=== PATIENT | male | born 1970 | race African-American/Black ===

== ENCOUNTER 2018-07-01 07:29 | Observation (INO) ==
--- NOTE | 2018-07-01 07:45 | ED ---
HPI General Chief Complaint: Chest Pain Stated Complaint: chest pain Time Seen by Provider: 07/01/18 07:33 History of Present Illness HPI narrative: Patient is 47-year-old male with history of high blood pressure, stopped taking lisinopril after he lost weight. He presented to emergency room complaining about midsternal chest pain started at 11 PM last night mostly constant. He denies abdominal pain, dyspnea. Patient has chronic low back pain , takes ibuprofen for that. 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 Last night he took 1 tablet of lisinopril and baby aspirin with no improvement. MD complaint: Reports chest pain Related Data Home Medications Medication Instructions Recorded Confirmed aspirin [Aspir-81] 81 mg PO ONCE 07/01/18 07/01/18 dexlansoprazole [Dexilant] 30 mg PO ONCE 07/01/18 07/01/18 lisinopril 2.5 mg PO ONCE 07/01/18 07/01/18 Allergies Allergy/AdvReac Type Severity Reaction Status Date / Time No Known Allergies Allergy Verified 07/01/18 07:38 Review of Systems ROS: all other systems reviewed are negative Cardiovascular Reports chest pain [facility] Medical History Medical History History of cardiac murmur as a child (Acute) Surgical History Surgical History Hx of hernia repair (Acute) Family History Family History Father Family history of heart disease Mother History of liver cancer Social History Social History Substance History: No History of Abuse Second Hand Smoke Exposure: No Smoking Status: Never smoker How Often Do You Have a Drink Containing Alcohol: Never Recent Out of Country Travel within the Last 8 Weeks: No Exam Narrative Exam Narrative: GENERAL: 47-year-old male in no apparent distress. SKIN: Focused skin assessment warm/dry. HEAD: Atraumatic. Normocephalic. EYES: Pupils equal and round. No scleral icterus. No injection or drainage. ENT: No nasal bleeding or discharge. Mucous membranes pink and moist. NECK: Trachea midline. No JVD. CARDIOVASCULAR: Regular rate and rhythm. No murmur appreciated. RESPIRATORY: No accessory muscle use. Clear to auscultation. Breath sounds equal bilaterally. GASTROINTESTINAL: Abdomen soft, non-tender, nondistended. Hepatic and splenic margins not palpable. MUSCULOSKELETAL: No obvious deformities. No clubbing. No cyanosis. No edema. NEUROLOGICAL: Awake and alert. No obvious cranial nerve deficits. Motor grossly within normal limits. Normal speech. PSYCHIATRIC: Appropriate mood and affect; insight and judgment normal. Course Initial Documented Vital Signs Pulse Rate 67 07/01/18 07:36 Respiratory Rate 18 07/01/18 07:36 Blood Pressure 140/95 H 07/01/18 07:36 Pulse Oximetry 98 07/01/18 07:36 Last Documented Vital Signs Temperature 96.8 F L 07/01/18 12:00 Pulse Rate 59 L 07/01/18 12:00 Respiratory Rate 20 07/01/18 12:00 Blood Pressure 128/76 07/01/18 12:00 Pulse Oximetry 97 07/01/18 12:00 Medical Decision Making MDM Narrative Medical decision making narrative: Cardiac workup ordered, aspirin and nitroglycerin given. Reevaluation is pending. 0800: No chest pain improvement with aspirin and nitroglycerin; morphine and Maalox given. Patient is unable to describe his pain, also feels palpitations, denies anxiety reaction. 0840: Pain resolved, patient feels better. First set of troponin is negative, CK MB is positive. Patient needs to be placed on observation for chest pain rule out ACS. Medical Screen Exam Complete: Yes Emergency Medical Condition: Yes Differential Diagnosis Differential Diagnosis: [place] versus costochondritis versus gastritis versus pneumonia. Lab Data Result diagrams: 07/01/18 07:45 07/01/18 07:45 Lab Results 07/01/18 07/01/18 07/01/18 Range/Units 07:45 07:45 07:45 CBC w Diff Slide review pending WBC 5.0 (4.0-11.0) th/mm3 RBC 3.75 L (4.50-5.90) mil/mm3 Hgb 11.7 L (13.0-17.0) gm/dL Hct 35.4 L (39.0-51.0) % MCV 94.5 (80.0-100.0) fL MCH 31.1 (27.0-34.0) pg MCHC 33.0 (32.0-36.0) % RDW 13.0 (11.6-17.2) % Plt Count 231 (150-450) th/mm3 MPV 8.0 (7.0-11.0) fL Neut % (Auto) 35.8 (16.0-70.0) % Lymph % (Auto) 49.5 H (9.0-44.0) % [place] % (Auto) 12.0 H (0.0-8.0) % Eos % (Auto) 1.7 (0.0-4.0) % Baso % (Auto) 1.0 (0.0-2.0) % Neut # (Auto) 1.8 (1.8-7.7) th/mm3 Lymph # (Auto) 2.4 (1.0-4.8) th/mm3 [place] # (Auto) 0.6 (0.0-0.9) th/mm3 Eos # (Auto) 0.1 (0.0-0.4) th/mm3 Baso # (Auto) 0.1 (0.0-0.2) th/mm3 WBC Differential . Diff Scan Auto diff confirmed Differential Comment . Platelet Estimate Normal (Normal) Platelet Morphology Normal (Normal) RBC Morphology Normal (Normal) D-Dimer Quant (PE/DVT) 0.28 (0.00-0.50) mg/L FEU Sodium 140 (136-145) meq/L Potassium 3.7 (3.5-5.1) meq/L Chloride 106 (98-107) meq/L Carbon Dioxide 26.8 (21.0-32.0) meq/L Anion Gap 7 (5-15) meq/L BUN 13 (7-18) mg/dL Creatinine 1.20 (0.60-1.30) mg/dL Estimated GFR 79 L (>89) mL/min Random Glucose 89 (74-106) mg/dL Calcium 8.5 (8.5-10.1) mg/dL Total Bilirubin 0.4 (0.2-1.0) mg/dL AST 23 (15-37) U/L ALT 23 (12-78) U/L Alkaline Phosphatase 74 (45-117) U/L Total Creatine Kinase 649 H (39-308) U/L CK-MB (CK-2) 1.4 (0.5-3.6) ng/mL CK-MB (CK-2) % 0.2 (0.0-4.0) % Troponin I Less than 0.02 L (0.02-0.05) ng/mL Total Protein 7.4 (6.4-8.2) g/dL Albumin 4.0 (3.4-5.0) g/dL Lipase 108 (73-393) U/L 07/01/18 07/01/18 Range/Units 07:45 10:49 CBC w Diff WBC (4.0-11.0) th/mm3 RBC (4.50-5.90) mil/mm3 Hgb (13.0-17.0) gm/dL Hct (39.0-51.0) % MCV (80.0-100.0) fL MCH (27.0-34.0) pg MCHC (32.0-36.0) % RDW (11.6-17.2) % Plt Count (150-450) th/mm3 MPV (7.0-11.0) fL Neut % (Auto) (16.0-70.0) % Lymph % (Auto) (9.0-44.0) % [place] % (Auto) (0.0-8.0) % Eos % (Auto) (0.0-4.0) % Baso % (Auto) (0.0-2.0) % Neut # (Auto) (1.8-7.7) th/mm3 Lymph # (Auto) (1.0-4.8) th/mm3 [place] # (Auto) (0.0-0.9) th/mm3 Eos # (Auto) (0.0-0.4) th/mm3 Baso # (Auto) (0.0-0.2) th/mm3 WBC Differential Diff Scan Differential Comment Platelet Estimate (Normal) Platelet Morphology (Normal) RBC Morphology (Normal) D-Dimer Quant (PE/DVT) (0.00-0.50) mg/L FEU Sodium (136-145) meq/L Potassium (3.5-5.1) meq/L Chloride (98-107) meq/L Carbon Dioxide (21.0-32.0) meq/L Anion Gap (5-15) meq/L BUN (7-18) mg/dL Creatinine (0.60-1.30) mg/dL Estimated GFR (>89) mL/min Random Glucose (74-106) mg/dL Calcium (8.5-10.1) mg/dL Total Bilirubin (0.2-1.0) mg/dL AST (15-37) U/L ALT (12-78) U/L Alkaline Phosphatase (45-117) U/L Total Creatine Kinase Cancelled 645 H (39-308) U/L CK-MB (CK-2) 1.4 (0.5-3.6) ng/mL CK-MB (CK-2) % 0.2 (0.0-4.0) % Troponin I Less than 0.02 L (0.02-0.05) ng/mL Total Protein (6.4-8.2) g/dL Albumin (3.4-5.0) g/dL Lipase (73-393) U/L Imaging Data Radiologist's impression: Chest X-Ray 07/01/18 07:39 CONCLUSION: Negative for acute process ECG Data EKG Prior to Arrival: No Attestation: I personally reviewed and interpreted this ECG as follows: Prior ECG tracings: available for review Interpretation: Normal sinus rhythm at rate 67, no ST elevation, LVH. Discharge Plan Discharge Disposition Patient Disposition: 30 Still Patient Discharge Condition Condition: Stable Discharge Order Discharge Orders: Discharge Order (Routine); Ordered 07/01/18 Ordered By: Tavo Napoles Discharge Details Anticipated Discharge Date: 07/01/18 Diagnosis: Atypical chest pain Physicians Team ED Provider: Rizwan Bhatt Primary Care Provider: Primary Care Lanette Lockhart Attending Provider: Hermelinda Clark Status ED Status: Left Department Discharge Information Discharge Date/Time: 07/01/18 09:39
[2018-07-01 07:58] LABS: Baso # (Auto) 0.1 th/mm3 (0.0-0.2); Eos # (Auto) 0.1 th/mm3 (0.0-0.4); Eos % (Auto) 1.7 % (0.0-4.0); Hematocrit 35.4 % (39.0-51.0); Hemoglobin 11.7 gm/dL (13.0-17.0); Lymph # (Auto) 2.4 th/mm3 (1.0-4.8); Lymph % (Auto) 49.5 % (9.0-44.0); Mean Corpuscular Hemoglobin 31.1 pg (27.0-34.0); Mean Corpuscular Volume 94.5 fL (80.0-100.0); Mono # (Auto) 0.6 th/mm3 (0.0-0.9); Neut # (Auto) 1.8 th/mm3 (1.8-7.7); Neut % (Auto) 35.8 % (16.0-70.0); Platelet Count 231 th/mm3 (150-450); Red Blood Count 3.75 mil/mm3 (4.50-5.90)
[2018-07-01] MEDS ORDERED: Morphine Sulfate Inj 2 MG/ML Vial IV.PUSH ONE (07:59)
[2018-07-01] MEDS ORDERED: Aluminum/Magnesium/Simethacone Susp 30 ML UDC PO ONE (08:01)
--- NOTE | 2018-07-01 08:04 | XR ---
EXAM DATE: 07/01/2018 7:58 AM EDT AGE/SEX: 47 years / Male INDICATIONS: Chest pains since last night. CLINICAL DATA: This is the patient's initial encounter. Patient reports that signs and symptoms have been present for 1 day and indicates a pain score of 5/10. MEDICAL/SURGICAL HISTORY: Hypertension. None. COMPARISON: No prior exams available for comparison. FINDINGS: A single AP view of the chest demonstrates the lungs to be symmetrically aerated without evidence of mass, infiltrate or effusion. The cardiomediastinal contours are unremarkable. Osseous structures a re intact. CONCLUSION: Negative for acute process Electronically signed by: Alden Street MD 07/01/2018 8:03 AM EDT
[2018-07-01 08:12] LABS: Chloride 106 meq/L (98-107); Potassium 3.7 meq/L (3.5-5.1); Sodium 140 meq/L (136-145)
[2018-07-01 08:15] LABS: Calcium 8.5 mg/dL (8.5-10.1)
[2018-07-01 08:16] LABS: Anion Gap 7 meq/L (5-15); Blood Urea Nitrogen 13 mg/dL (7-18); Carbon Dioxide 26.8 meq/L (21.0-32.0); Glucose,Random 89 mg/dL (74-106); Lipase 108 U/L (73-393)
[2018-07-01 08:19] LABS: Alanine Aminotransferase 23 U/L (12-78); Aspartate Aminotransferase 23 U/L (15-37); Glomerular Filtration Rate 79 mL/min (>89)
[2018-07-01 08:20] LABS: Total Protein 7.4 g/dL (6.4-8.2)
[2018-07-01 08:22] LABS: Alkaline Phosphatase 74 U/L (45-117); Creatine Kinase 649 U/L (39-308)
[2018-07-01 08:23] LABS: RBC Morphology Normal (Normal)
[2018-07-01 08:25] LABS: Platelet Estimate Normal (Normal); Platelet Morphology Normal (Normal)
[2018-07-01 08:34] LABS: CKMB Percent 0.2 % (0.0-4.0); Creatine Kinase MB 1.4 ng/mL (0.5-3.6)
[2018-07-01] MEDS ORDERED: Acetaminophen 500 MG Tablet PO PRN (09:45)
[2018-07-01] MEDS ORDERED: Morphine Inj 4 MG/ML Vial IV.PUSH PRN (09:45)
[2018-07-01 10:28] VITALS: RESP 20
--- NOTE | 2018-07-01 10:36 | P.HP ---
History of Present Illness Primary Care Physician: No Primary Care Physician Chief Complaint: Chest pain History of Present Illness: 47-year-old male with past medical history of hypertension who presented hospital for chest discomfort. Patient states that last night at approximately 11 PM he developed a sudden onset of chest discomfort in the middle part of her chest without any radiation to neck, back, shoulder, arm. Denied any nausea, vomiting, diaphoresis, shortness of breath, dyspnea, lightheadedness, dizziness. Patient does have history of hypertension which he was taking off blood pressure medication approximate 1 year ago because he lost weight. Patient denies any previous cardiac workup or stress testing. Patient states that the pain was located in the center part of his chest which was 7/10 on a pain scale remained constant until he came to the emergency department. Patient did present to the emergency department and was given morphine and nitroglycerin with complete resolution of his discomfort. It was recommended by the ER physician the patient be observed in the chest pain center for further evaluation management. Patient does have increased risk factors to include history of hypertension, family history of heart disease. - Diagnosis (1) Atypical chest pain Review of Systems All other systems reviewed negative except as stated in HPI Cardiovascular: Reports chest pain PMFSH - History History Provided By: Patient - Medical History Medical History: Medical History (Last Updated 07/01/18 @ 07:37 by Mary Dixon RN) History of cardiac murmur as a child - Surgical History Surgical History: Surgical History (Last Updated 07/01/18 @ 07:37 by Mary Dixon RN) Hx of hernia repair - Family History Family History: Family History (Last Updated 07/01/18 @ 10:28 by JAILYN Metz) Father Family history of heart disease Mother History of liver cancer - Tobacco History Second Hand Smoke Exposure: No Smoking Status: Never smoker - Alcohol History How Often Do You Have a Drink Containing Alcohol: Never - Substance Use History Substance History: No History of Abuse - Travel History Recent Travel Out of the Country Within the Last 8 Weeks: No - Immunization History Tetanus Immunization: Unsure Medications and Allergies Active Medications: Active Medications Acetaminophen (Tylenol) 500 mg PO Q4H PRN PRN Reason: HEADACHE Hydrocodone Bitart/Acetaminophen ([place] 7.5/325) 1 tab PO Q4H PRN PRN Reason: PAIN SCALE 1 TO 7 Aspirin (Aspirin) 325 mg PO DAILY CHARIS Morphine Sulfate (Morphine Inj) 2 mg IV.PUSH Q4H PRN PRN Reason: PAIN SCALE 8 TO 10 Nitroglycerin (Nitrostat Sl) 0.4 mg SL Q5M PRN PRN Reason: CHEST PAIN Ondansetron HCl (Zofran Inj) 4 mg IV.PUSH Q6H PRN PRN Reason: NAUSEA Sodium Chloride (Ns Flush) 2 ml IV.FLUSH BID CHARIS Sodium Chloride (Ns Flush) 2 ml IV.FLUSH PRN PRN PRN Reason: FLUSH AFTER USING IV ACCESS Allergies Allergy/AdvReac Type Severity Reaction Status Date / Time No Known Allergies Allergy Verified 07/01/18 07:38 Home Medications Medication Instructions Recorded Confirmed Type aspirin [Aspir-81] 81 mg PO ONCE 07/01/18 07/01/18 History dexlansoprazole [Dexilant] 30 mg PO ONCE 07/01/18 07/01/18 History lisinopril 2.5 mg PO ONCE 07/01/18 07/01/18 History Exam Vital signs: Vital Signs 07/01/18 07:36 07/01/18 07:41 07/01/18 07:44 Temperature 98.1 F Pulse Rate 67 78 64 Respiratory Rate 18 18 Blood Pressure 140/95 H 154/101 H Pulse Oximetry 98 98 98 07/01/18 08:09 07/01/18 08:42 07/01/18 10:25 Temperature 96.4 F L Pulse Rate 76 69 Respiratory Rate 18 20 Blood Pressure 134/89 139/90 133/82 Pulse Oximetry 98 98 Intake & Output 06/30/18 07/01/18 07/01/18 18:59 06:59 18:59 Weight 90 kg Narrative: GENERAL: Well-developed, well-nourished, in no acute distress. alert and orientated HEENT: Head is normocephalic without any lesions or masses noted. Facial features are symmetric. Eyes: Pupils equal round reactive to light. Extraocular muscles are intact. Conjunctivae were clear. Oropharyngeal: Pharynx without any erythema edema. Tongue is midline without deviation. Buccal mucosa is moist without any masses or lesions NECK: Supple without any masses. Trachea midline no deviation. No JVD, no bruits are appreciated CARDIAC: Regular rhythm, regular rate. S1/S2 are heard. No murmurs gallops or rubs. LUNGS: Clear to auscultation bilaterally. No wheeze, rhonchi or rales. No use of accessory muscles on inspiration or expiration. ABDOMEN: Soft, nontender. Nondistended. Bowel sounds heard in all 4 quadrants. No organomegaly or masses. Negative rebound, negative guarding EXTREMITIES: No edema, pulses are equal bilaterally. No cyanosis or clubbing NEUROLOGY: Mood and affect appear appropriate. Cranial nerves II through XII grossly intact. Muscle strength 5/5 in upper and lower extremities bilaterally. Deep tendon reflexes are 2+ in upper and lower extremities bilaterally. Results - Labs CBC & Chem 7: 07/01/18 07:45 07/01/18 07:45 Labs: Laboratory Results - last 24 hr 07/01/18 07/01/18 07/01/18 07:45 07:45 07:45 CBC w Diff Slide review pending WBC 5.0 RBC 3.75 L Hgb 11.7 L Hct 35.4 L MCV 94.5 MCH 31.1 MCHC 33.0 RDW 13.0 Plt Count 231 MPV 8.0 Neut % (Auto) 35.8 Lymph % (Auto) 49.5 H [place] % (Auto) 12.0 H Eos % (Auto) 1.7 Baso % (Auto) 1.0 Neut # (Auto) 1.8 Lymph # (Auto) 2.4 [place] # (Auto) 0.6 Eos # (Auto) 0.1 Baso # (Auto) 0.1 WBC Differential . Diff Scan Auto diff confirmed Differential Comment . Platelet Estimate Normal Platelet Morphology Normal RBC Morphology Normal D-Dimer Quant (PE/DVT) 0.28 Sodium 140 Potassium 3.7 Chloride 106 Carbon Dioxide 26.8 Anion Gap 7 BUN 13 Creatinine 1.20 Estimated GFR 79 L Random Glucose 89 Calcium 8.5 Total Bilirubin 0.4 AST 23 ALT 23 Alkaline Phosphatase 74 Total Creatine Kinase 649 H CK-MB (CK-2) 1.4 CK-MB (CK-2) % 0.2 Troponin I Less than 0.02 L Total Protein 7.4 Albumin 4.0 Lipase 108 07/01/18 07:45 CBC w Diff WBC RBC Hgb Hct MCV MCH MCHC RDW Plt Count MPV Neut % (Auto) Lymph % (Auto) [place] % (Auto) Eos % (Auto) Baso % (Auto) Neut # (Auto) Lymph # (Auto) [place] # (Auto) Eos # (Auto) Baso # (Auto) WBC Differential Diff Scan Differential Comment Platelet Estimate Platelet Morphology RBC Morphology D-Dimer Quant (PE/DVT) Sodium Potassium Chloride Carbon Dioxide Anion Gap BUN Creatinine Estimated GFR Random Glucose Calcium Total Bilirubin AST ALT Alkaline Phosphatase Total Creatine Kinase Cancelled CK-MB (CK-2) CK-MB (CK-2) % Troponin I Total Protein Albumin Lipase - Imaging Impressions Chest X-Ray 07/01/18 07:39 CONCLUSION: Negative for acute process Caprini VTE Risk Assessment Caprini VTE Risk Assessment: No/Low Risk (score <= 1) Caprini Risk Assessment Model: Point Value = 1 Point Value = 2 Point Value = 3 Point Value = 5 Age 41-60 Minor surgery BMI > 25 kg/m2 Swollen legs Varicose veins or History of unexplained or recurrent spontaneous Oral contraceptives or hormone replacement Sepsis (< 1 month) Serious lung disease, including pneumonia (< 1 month) Abnormal pulmonary function Acute myocardial infarction Congestive heart failure (< 1 month) History of inflammatory bowel disease Medical patient at bed rest Age 61-74 Arthroscopic surgery Major open surgery (> 45 min) Laparoscopic surgery (> 45 min) Malignancy Confined to bed (> 72 hours) Immobilizing plaster cast Central venous access Age >= 75 History of VTE Family history of VTE Factor V Leiden Prothrombin [id number] Lupus anticoagulant Anticardiolipin antibodies Elevated serum homocysteine Heparin-induced thrombocytopenia Other congenital or acquired thrombophilia Stroke (< 1 month) Elective arthroplasty Hip, pelvis, or leg fracture Acute spinal cord injury (< 1 month) Prophylaxis Regimen: Total Risk Factor Score Risk Level Prophylaxis Regimen 0-1 Low Early ambulation 2 Moderate Order ONE of the following: *Sequential Compression Device (SCD) *Heparin 5000 units SQ BID 3-4 Higher Order ONE of the following medications: *Heparin 5000 units SQ TID *Enoxaparin/Lovenox 40 mg SQ daily (WT < 150 kg, CrCl > 30 mL/min) *Enoxaparin/Lovenox 30 mg SQ daily (WT < 150 kg, CrCl > 10-29 mL/min) *Enoxaparin/Lovenox 30 mg SQ BID (WT < 150 kg, CrCl > 30 mL/min) AND/OR *Sequential Compression Device (SCD) 5 or more Highest Order ONE of the following medications: *Heparin 5000 units SQ TID (Preferred with Epidurals) *Enoxaparin/Lovenox 40 mg SQ daily (WT < 150 kg, CrCl > 30 mL/min) *Enoxaparin/Lovenox 30 mg SQ daily (WT < 150 kg, CrCl > 10-29 mL/min) *Enoxaparin/Lovenox 30 mg SQ BID (WT < 150 kg, CrCl > 30 mL/min) AND *Sequential Compression Device (SCD) Assessment and Plan - Assessment (1) Atypical chest pain Code(s): R07.89 - Other chest pain Status: Acute - Plan Atypical chest pain -Patient with risk factors include history of hypertension, family history of heart disease -Patient has been ruled out for acute coronary event with serial cardiac enzymes that are negative -Serial EKG reviewed by myself that shows normal sinus rhythm without any changes -Exercise stress test was performed and indicated normal test, no signs of ischemia. -Continue aspirin, nitroglycerin as needed, morphine for pain control -Continue monitor telemetry DVT prevention -Sequential compression devices Discharge Planning: Discharge home in stable condition Activity: Ad wiliam. Diet: Healthy heart diet Medication per medication reconciliation Follow-up with primary medical doctor in 1 week
[2018-07-01 11:31] LABS: Creatine Kinase 645 U/L (39-308)
[2018-07-01 11:44] LABS: CKMB Percent 0.2 % (0.0-4.0); Creatine Kinase MB 1.4 ng/mL (0.5-3.6)
[2018-07-01 13:12] VITALS: BP 128/76; PULSE 59; TEMP 96.8; O2SAT 97
--- NOTE | 2018-07-01 14:39 | ECG ---
Date Performed: 07/01/2018 Time Performed: 07:33:59 PTAGE: 47 years EKG: Sinus rhythm NORMAL ECG NO PREVIOUS TRACING DOCTOR: Toan Mario Interpretating Date/Time 07/01/2018 14:37:39
[2018-07-02] MEDS ORDERED: Aspirin 325 MG Tablet PO SCH (09:00)
--- NOTE | 2018-07-02 14:51 | ECG ---
Date Performed: 07/01/2018 Time Performed: 10:45:18 PTAGE: 47 years EKG: Sinus rhythm WITH SINUS ARRHYTHMIA Since the previous tracing, no significant change noted NORMAL ECG PREVIOUS TRACING : 07/01/2018 07.33 DOCTOR: Cornell Siu Interpretating Date/Time 07/02/2018 14:48:39
--- NOTE | 2018-07-02 17:21 | TR ---
Date Performed: 07/01/2018 Time Performed: 12:45:22 DOCTOR: Connie Sabillon DRUG LIST: CLINICAL HISTORY: REASON FOR TEST: REASON FOR ENDING: Completed Protocol OBSERVATION: Arrhythmia: None Chest Pain: None CONCLUSION: Patient tolerated DAVID protocol with Total Exercise Time=8:01 Maximum TS=008 % Max HR Achieved=87.0% Maximum JG=644/85, Testing stopped secondary to goals acheived, During peak exercis e, patient was asymptomatic, quick upsloping ST segments, HR and BP appropriate response to exercise. Recovery period, HR and BP returned to baseline. no ischemia COMMENTS: no ischemia
== END 2018-07-01 13:55 | disposition home or self-care (01) ==
LOC: PHEDA 07:29 → PHED 07:29 → PH3 09:34
PROVIDERS: ADMIT Family Medicine; ATTEND Family Medicine

== ENCOUNTER 2018-07-29 15:27 | Inpatient (IN) ==
[2018-07-29] MEDS ORDERED: Orphenadrine Inj 60 MG/2 ML Ampul IM ONE (16:14)
--- NOTE | 2018-07-29 16:37 | XR ---
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 CLINICAL DATA: This is the patient's initial encounter. Patient reports that signs and symptoms have been present for 2 days and indicates a pain score of 7/10. MEDICAL/SURGICAL HISTORY: None. None. COMPARISON: [facility], CHEST 1V SINGLE AP, 07/01/2018. . FINDINGS: Examination reveals permeative destruction or resorption of the majority of the anterior aspect of th e L4 vertebral body. There is abnormal lucency involving the visualized posterior portion of the vert ebral body. The other vertebra are benign in appearance with superior endplate compressive deformitie s at L1 and L2 which appear old. There is no significant spondylolisthesis. CONCLUSION: Destructive process involving L4 vertebral body. Further evaluation with pre and postcontrast MRI of the lumbar spine suggested. Electronically signed by: Mike Samuel MD 07/29/2018 4:36 PM EST
--- NOTE | 2018-07-29 17:29 | ED ---
HPI General Chief Complaint: Back Pain/Injury Stated Complaint: back pain Time Seen by Provider: 07/29/18 16:03 Source: patient Mode of arrival: ambulatory Limitations: no limitations History of Present Illness HPI Narrative: 47-year-old male here with low back pain & "spine swelling" present for 1 month. 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 He reports swelling and a "bulge" to the low back which has been present for 1 month. Yesterday he attempted to mow the grass which exacerbated the pain in the back. He denies altered sensation or weakness of extremities. No incontinence. No saddle anesthesia. Denies history of IVDA. No fever or chills. No weight loss. No abdominal pain. Related Data Home Medications Medication Instructions Recorded Confirmed lisinopril 2.5 mg PO DAILY PRN 07/01/18 07/29/18 Allergies Allergy/AdvReac Type Severity Reaction Status Date / Time No Known Allergies Allergy Verified 07/29/18 16:00 Review of Systems ROS: all other systems reviewed are negative [facility] Medical History Medical History Murmur, heart (Acute) History of cardiac murmur as a child (Acute) Surgical History Surgical History Hx of hernia repair (Acute) Family History Family History Father Family history of heart disease Mother History of liver cancer Social History Social History Substance History: No History of Abuse Second Hand Smoke Exposure: No Smoking Status: Former smoker Tobacco Type: Cigarettes How Often Do You Have a Drink Containing Alcohol: Never Immunization History Tetanus Immunization: <5 Years Exam Narrative Exam Narrative: GENERAL: Alert and well-appearing 47-year-old male. SKIN: Focused skin assessment warm/dry. HEAD: Atraumatic. Normocephalic. EYES: Pupils equal and round. No scleral icterus. No injection or drainage. NECK: Trachea midline. No JVD. CARDIOVASCULAR: Regular rate and rhythm. No murmur appreciated. RESPIRATORY: No accessory muscle use. Clear to auscultation. Breath sounds equal bilaterally. GASTROINTESTINAL: Abdomen soft, non-tender, nondistended. Hepatic and splenic margins not palpable. MUSCULOSKELETAL: No obvious deformities. No clubbing. No cyanosis. No edema. BACK: Tenderness to the lumbar spine region with notable swelling to the midline spine. There is no warmth or erythema. NEUROLOGICAL: Awake and alert. No obvious cranial nerve deficits. Motor grossly within normal limits. 5/5 strength in his lower extremities. Is able to flex and extend the great toe. Distal sensation intact. Ambulates with a steady gait. Course Initial Documented Vital Signs Temperature 98.9 F 07/29/18 15:28 Pulse Rate 85 07/29/18 15:28 Respiratory Rate 20 07/29/18 15:28 Blood Pressure 162/94 H 07/29/18 15:28 Pulse Oximetry 98 07/29/18 15:28 Last Documented Vital Signs Temperature 98.9 F 07/29/18 15:28 Pulse Rate 68 07/29/18 22:15 Respiratory Rate 18 07/29/18 22:15 Blood Pressure 155/90 H 07/29/18 22:15 Pulse Oximetry 96 07/29/18 19:55 Medical Decision Making MDM Narrative Medical decision making narrative: 47-year-old male here with progressive low back pain and mild swelling to the lumbar spine region x 1 month. He has a normal neurologic exam. xray revealed a destructive process involving the L4 vertebral body with recommended MRI w/ contrast. MRI of lumbar spine: reveal destructive process involving L4 vertebral body with marrow replacing process concerning for myeloma 2054: Spoke with house calls nurse practitioner Neurosurgeon Dr Keene who would like the patient admitted to medicine [facility], transfer to the main hospital, routine consult for himself & oncology. Spoke with Dr Edouard [facility] who agrees to admit patient to their service. Medical Screen Exam Complete: Yes Emergency Medical Condition: Yes Differential Diagnosis Differential Diagnosis: Compression fracture, lumbar strain, osteomyelitis Lab Data Result diagrams: 07/29/18 17:40 07/29/18 17:40 Lab Results 07/29/18 07/29/18 Range/Units 17:40 17:40 CBC w Diff Auto diff final WBC 5.0 (4.0-11.0) th/mm3 RBC 3.65 L (4.50-5.90) mil/mm3 Hgb 11.2 L (13.0-17.0) gm/dL Hct 33.7 L (39.0-51.0) % MCV 92.3 (80.0-100.0) fL MCH 30.7 (27.0-34.0) pg MCHC 33.2 (32.0-36.0) % RDW 12.9 (11.6-17.2) % Plt Count 223 (150-450) th/mm3 MPV 7.7 (7.0-11.0) fL Neut % (Auto) 47.5 (16.0-70.0) % Lymph % (Auto) 38.9 (9.0-44.0) % [place] % (Auto) 11.3 H (0.0-8.0) % Eos % (Auto) 1.2 (0.0-4.0) % Baso % (Auto) 1.1 (0.0-2.0) % Neut # (Auto) 2.3 (1.8-7.7) th/mm3 Lymph # (Auto) 1.9 (1.0-4.8) th/mm3 [place] # (Auto) 0.6 (0.0-0.9) th/mm3 Eos # (Auto) 0.1 (0.0-0.4) th/mm3 Baso # (Auto) 0.1 (0.0-0.2) th/mm3 WBC Differential . Differential Comment . Sodium 141 (136-145) meq/L Potassium 3.9 (3.5-5.1) meq/L Chloride 107 (98-107) meq/L Carbon Dioxide 27.8 (21.0-32.0) meq/L Anion Gap 6 (5-15) meq/L BUN 9 (7-18) mg/dL Creatinine 1.30 (0.60-1.30) mg/dL Estimated GFR 72 L (>89) mL/min Random Glucose 89 (74-106) mg/dL Calcium 8.7 (8.5-10.1) mg/dL Total Bilirubin 0.6 (0.2-1.0) mg/dL AST 25 (15-37) U/L ALT 31 (12-78) U/L Alkaline Phosphatase 80 (45-117) U/L Total Protein 7.2 (6.4-8.2) g/dL Albumin 3.9 (3.4-5.0) g/dL Imaging Data Radiologist's impression: Lumbar Spine X-Ray 07/29/18 16:14 CONCLUSION: Destructive process involving L4 vertebral body. Further evaluation with pre and postcontrast MRI of the lumbar spine suggested. Lumbar Spine MRI 07/29/18 17:19 CONCLUSION: 1. Abnormal L4 vertebral body with subtle marrow edema and L2 and L4 without obvious enhancement. This has the appearance of a long-standing process. 2. Marrow appears osteoporotic with minimal endplate depression of L1 and L2.. 3. Marrow replacing process such as a myeloma should be excluded clinically. 4. Bone scan may help in determining whether or not this is an acute or chronic process. 5. If a small inflammatory process such as tuberculosis is a consideration this could be biopsied precariously as well. Discharge Plan Discharge Disposition Patient Disposition: 30 Still Patient Discharge Details Diagnosis: Fracture of lumbar spine Physicians Team ED Provider: Dov Paul ED Midlevel Provider: Bnig Mcclellan Primary Care Provider: Primary Care Lanette Lockhart Attending Provider: Hazel Edouard Other Providers: Baldemar Keene ; Endy Aldridge Status ED Status: Admitted Patient
[2018-07-29 17:44] LABS: Baso # (Auto) 0.1 th/mm3 (0.0-0.2); Baso % (Auto) 1.1 % (0.0-2.0); Eos # (Auto) 0.1 th/mm3 (0.0-0.4); Eos % (Auto) 1.2 % (0.0-4.0); Hematocrit 33.7 % (39.0-51.0); Hemoglobin 11.2 gm/dL (13.0-17.0); Lymph # (Auto) 1.9 th/mm3 (1.0-4.8); Lymph % (Auto) 38.9 % (9.0-44.0); Mean Corpuscular HGB Conc 33.2 % (32.0-36.0); Mean Corpuscular Hemoglobin 30.7 pg (27.0-34.0); Mean Corpuscular Volume 92.3 fL (80.0-100.0); Mean Platelet Volume 7.7 fL (7.0-11.0); Mono # (Auto) 0.6 th/mm3 (0.0-0.9); Mono % (Auto) 11.3 % (0.0-8.0); Neut # (Auto) 2.3 th/mm3 (1.8-7.7); Neut % (Auto) 47.5 % (16.0-70.0); Platelet Count 223 th/mm3 (150-450); Red Blood Count 3.65 mil/mm3 (4.50-5.90); Red Cell Distribution Width 12.9 % (11.6-17.2)
[2018-07-29 17:50] LABS: Chloride 107 meq/L (98-107); Potassium 3.9 meq/L (3.5-5.1); Sodium 141 meq/L (136-145)
[2018-07-29 17:55] LABS: Calcium 8.7 mg/dL (8.5-10.1)
[2018-07-29 17:56] LABS: Albumin 3.9 g/dL (3.4-5.0); Anion Gap 6 meq/L (5-15); Blood Urea Nitrogen 9 mg/dL (7-18); Carbon Dioxide 27.8 meq/L (21.0-32.0); Glucose,Random 89 mg/dL (74-106)
[2018-07-29 17:59] LABS: Alanine Aminotransferase 31 U/L (12-78); Aspartate Aminotransferase 25 U/L (15-37); Glomerular Filtration Rate 72 mL/min (>89)
[2018-07-29 18:01] LABS: Total Protein 7.2 g/dL (6.4-8.2)
[2018-07-29 18:02] LABS: Alkaline Phosphatase 80 U/L (45-117)
[2018-07-29] MEDS ORDERED: Gadobutrol PF 10 MMOL/10 ML Vial (for RAD) IV.SIG ONE (19:22)
--- NOTE | 2018-07-29 19:59 | MR ---
EXAM DATE: 07/29/2018 7:37 PM EST AGE/SEX: 47 years / Male INDICATIONS: . Low back pain. Abnormal xray. CLINICAL DATA: This is the patient's initial encounter. Patient reports that signs and symptoms have been present for 3 days and indicates a pain score of 6/10. MEDICAL/SURGICAL HISTORY: None. . Heart. Nose. COMPARISON: [facility], LUMBAR SPINE LTD AP[facility]LAT, 07/29/2018. . TECHNIQUE: Multiplanar, multisequence MRI examination of the lumbar spine was performed without and with 9 ml Gadavist (gadobutrol) contrast as a single exam dose. FINDINGS: The most caudal-appearing lumbar vertebra is numbered as L5. Vertebra: There is minimal loss of vertebral body height at L1 and L2. There is marked loss of verte bral body height at L4. There is subtle marrow abnormality present in L2 and L4. Conus: Normal level and configuration. Post Contrast: There is no abnormal contrast enhancement on the postcontrast images. T12-L1: The thecal sac has a normal diameter. No evidence of disc bulge or protrusion. The neural foramina are patent bilaterally. L1-L2: Schmorl's type endplate depression of L2 with very minimal disc bulging without significant spinal stenosis. L2-L3: Mild disc bulging without significant spinal stenosis. Neural foramen are intact. Mild degen erative changes are present facets. L3-L4: Marked loss of disc space height with mild interspace ridging and mild bilateral neural fora ered encroachment. Minimal impingement on the thecal sac from some retropulsion of bone. L4-L5: Abnormal marrow in the L4 vertebral body extending through the center of the vertebral body to involve the pedicles bilaterally with a soft tissue component. This shows only mild enhancement Minimal retropulsion of bone causing minimal impingement on the thecal sac with moderate bilateral ne ural foraminal encroachment. L5-S1: Minimal disc bulging evident without significant spinal stenosis or neural foraminal encroac hment. CONCLUSION: 1. Abnormal L4 vertebral body with subtle marrow edema and L2 and L4 without obvious enhancement. Th is has the appearance of a long-standing process. 2. Marrow appears osteoporotic with minimal endplate depression of L1 and L2.. 3. Marrow replacing process such as a myeloma should be excluded clinically. 4. Bone scan may help in determining whether or not this is an acute or chronic process. 5. If a small inflammatory process such as tuberculosis is a consideration this could be biopsied pr ecariously as well. Electronically signed by: Alden Street MD 07/29/2018 7:58 PM EST
[2018-07-29] MEDS ORDERED: Morphine Inj 4 MG/ML Vial IV.PUSH PRN ×2 (21:36→21:37)
--- NOTE | 2018-07-29 21:41 | P.CONNS ---
History of Present Illness Service: neurosurgery Consult date: 07/29/18 Requesting Physician: Bing Mcclellan Reason for Consult: pathological fracture Primary Care Provider: No Primary Care Physician Chief Complaint: Lumbar pain History of Present Illness: This a 47 year old male with history of HTN whopresents to ED for complaints of intractable lower back pain progressively worsening the last few weeks. Patient reports that on May 30 of this year he initially injured his back at work and was unable to work for a brief period. 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 Patient did not seek medical attention at the time and instead used ibuprofen and ice/warm packs with mild improvement. He reports continued lower back pain intermittently but it reached its worse point when he tried to cut the lawn and felt severe 10/10 sharp, non radiating lower back pain which limited his activity so he came to the ED. No other reported trauma. He denies drug use. Family history of liver cancer only in mother. No complaints of numbness/tingling in groin region. No urinary retention but he did notice some incontinence occasionally which is new. In ED patient received imaging showing lumbar destructive process for which neurosurgery consultation was requested Review of Systems All other systems reviewed negative except as stated in HPI PMFSH - History History Provided By: Patient - Medical History Medical History: Medical History (Last Reviewed 08/04/18 @ 13:52 by Baldemar Keene MD) Murmur, heart History of cardiac murmur as a child - Surgical History Surgical History: Surgical History (Last Reviewed 08/04/18 @ 13:52 by Baldemar Keene MD) Hx of hernia repair - Family History Family History: Family History (Last Reviewed 08/04/18 @ 13:52 by Baldemar Keene MD) Father Family history of heart disease Mother History of liver cancer - Tobacco History Second Hand Smoke Exposure: No Tobacco Use In Past 30 Days: No Smoking Status: Former smoker Tobacco Type: Cigarettes - Alcohol History How Often Do You Have a Drink Containing Alcohol: Never - Substance Use History Substance History: No History of Abuse - Immunization History Tetanus Immunization: <5 Years Medications and Allergies Active Medications: Active Medications Morphine Sulfate (Morphine Inj) 4 mg IV.PUSH Q3H PRN PRN Reason: pain 7 - 10 Morphine Sulfate (Morphine Inj) 2 mg IV.PUSH Q3H PRN PRN Reason: pain 3 - 6 Sodium Chloride (Ns Flush) 2 ml IV.FLUSH PRN PRN PRN Reason: FLUSH AFTER USING IV ACCESS Allergies Allergy/AdvReac Type Severity Reaction Status Date / Time No Known Allergies Allergy Verified 07/29/18 16:00 Home Medications Medication Instructions Recorded Confirmed Type lisinopril 2.5 mg PO DAILY PRN 07/01/18 07/29/18 History Exam Vital signs: Vital Signs 07/29/18 15:28 07/29/18 17:15 07/29/18 19:55 Temperature 98.9 F Pulse Rate 85 88 Respiratory Rate 20 16 Blood Pressure 162/94 H 157/90 H Pulse Oximetry 98 96 Intake & Output 07/29/18 07/29/18 07/30/18 06:59 18:59 06:59 Weight 90.7 kg Narrative: The patient is alert, awake. Comfortable, in no acute distress. Speech is fluent. Cranial nerve examination: pupils to be equal, round and reactive to light. Extra-ocular movements are intact. Facial motor and sensory function are normal and symmetrical. Gross hearing appears intact. Sternocleidomastoid and trapezius muscles are symmetrical. Other cranial nerves are intact. Neck is soft and supple with a good range of motion without pain. Muscle strength is normal in all muscle groups of both upper extremities. Lower extremity strenght can not be accurately assessed due to his severe pain and give away due to pain Sensory examination is intact to light touch and pin prick in both the upper and lower extremities. Deep tendon reflexes are symmetrical in both upper and lower extremities. There is a bilateral plantar flexion response. Cerebellar examination is unremarkable, without deficits. Lungs are clear Heart regular rhythm is regular rate Skin warm and dry Results - Laboratory Findings CBC and BMP: 08/03/18 04:27 08/02/18 04:32 Abnormal lab findings: Abnormal Labs 07/29/18 07/29/18 17:40 17:40 RBC 3.65 L Hgb 11.2 L Hct 33.7 L [place] % (Auto) 11.3 H Estimated GFR 72 L Assessment and Plan - Plan I have reviewed the clinical and radiological findings Lumbar Spine X-Ray 07/29/18 16:14 CONCLUSION: Destructive process involving L4 vertebral body. Further evaluation with pre and postcontrast MRI of the lumbar spine suggested. Lumbar Spine MRI 07/29/18 17:19 CONCLUSION: 1. Abnormal L4 vertebral body with subtle marrow edema and L2 and L4 without obvious enhancement. This has the appearance of a long-standing process. 2. Marrow appears osteoporotic with minimal endplate depression of L1 and L2.. 3. Marrow replacing process such as a myeloma should be excluded clinically. 4. Bone scan may help in determining whether or not this is an acute or chronic process. 5. If a small inflammatory process such as tuberculosis is a consideration this could be biopsied precariously as well. Neuro: neuro checks in a serial fashion. Recommend metastatic workup. CT chest, abdomen, pelvis. Consult oncology. Send urine for Bence protein. Sed rate , C reactive protein. Consider PPD with control. Rule out TB. Consider infectiojus disease consultation. CEA to rule out colon cancer Bed rest for now. TLSO brace Pain control with analgesics Will defer further recommendations to upon completion of his workup Pulmonary: aggressive pulmonary toilette, nasotracheal suction, and breathing treatments with nebulizers. Daily PT and OT Renal: Continue to monitor closely urine output, BUN and creatinine Endocrine: Continue to Monitor serial Acu checks and SSI as needed in detail ID continue to monitor for signs of infection Continue Protonix for stress ulcer prophylaxis Continue Kenrick hose and SCD's for DVT prophylaxis Further recommendations will be provided depending on the patient's clinical evaluation and follow up studies.
[2018-07-29] MEDS ORDERED: Temazepam 15 MG Capsule PO PRN (21:44)
[2018-07-29] MEDS ORDERED: Bisacodyl 10 MG Supp RECTAL PRN (21:44)
[2018-07-29] MEDS ORDERED: Lisinopril 5 MG Tablet PO PRN (22:00)
[2018-07-29] MEDS: Sod Chloride 0.9% Inj 1,000 ML IV.CONT SCH (22:23)
[2018-07-30 06:09] LABS: Eos % (Auto) 1.1 % (0.0-4.0); Hematocrit 32.2 % (39.0-51.0); Hemoglobin 10.7 gm/dL (13.0-17.0); Lymph # (Auto) 2.1 th/mm3 (1.0-4.8); Lymph % (Auto) 46.8 % (9.0-44.0); Mean Corpuscular HGB Conc 33.3 % (32.0-36.0); Mean Corpuscular Hemoglobin 30.8 pg (27.0-34.0); Mean Corpuscular Volume 92.4 fL (80.0-100.0); Mean Platelet Volume 7.8 fL (7.0-11.0); Mono # (Auto) 0.6 th/mm3 (0.0-0.9); Mono % (Auto) 13.9 % (0.0-8.0); Neut # (Auto) 1.6 th/mm3 (1.8-7.7); Neut % (Auto) 37.2 % (16.0-70.0); Platelet Count 212 th/mm3 (150-450); Red Blood Count 3.48 mil/mm3 (4.50-5.90); White Blood Count 4.3 th/mm3 (4.0-11.0)
[2018-07-30 06:16] LABS: Potassium 3.5 meq/L (3.5-5.1)
[2018-07-30 06:18] LABS: Calcium 7.9 mg/dL (8.5-10.1); Carbon Dioxide 26.1 meq/L (21.0-32.0)
[2018-07-30 06:38] LABS: Platelet Estimate Normal (Normal); Platelet Morphology Normal (Normal); RBC Morphology Normal (Normal)
[2018-07-30] MEDS: Sod Chloride 0.9% Inj 1,000 ML IV.CONT SCH (07:32)
[2018-07-30] MEDS ORDERED: Enoxaparin Inj 30 MG/0.3 ML Syringe SQ SCH (08:00)
[2018-07-30 08:17] LABS: Bilirubin,Urine Negative (Negative); Clarity,Urine Clear (Clear); Glucose,Urine (UA) Negative (Negative); Leukocyte Esterase,Urine Negative (Negative); Nitrite,Urine Negative (Negative); PH,Urine 6.5 (5.0-8.5); Specific Gravity,Urine 1.025 (1.002-1.035); Urobilinogen,Urine 0.2 mg/dL (Less than 2)
[2018-07-30 08:33] LABS: Color,Urine Straw (Yellw/Straw)
[2018-07-30 09:18] LABS: C-Reactive Protein 0.45 mg/dL (0.00-0.30)
--- NOTE | 2018-07-30 09:35 | P.HPIM ---
History of Present Illness Primary Care Physician: Patient is a 47 year old male with past medical history of HTN presenting to ED for complaints of lower back pain progressively worsening the last few weeks. Patient reports that on May 30 of this year he initially injured his back at work and was unable to work for a brief period. 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 Patient did not seek medical attention at the time and instead used ibuprofen and ice/ warm packs with mild improvement. Patient reports continued lower back pain on/ off but it reached its apex when he tried to cut the lawn and felt severe 10/10 sharp, non radiating lower back pain which limited his activity so he came to the ED. No other reported trauma. Patient denied drug use. Family history of liver cancer only in mother. No complaints of numbness/tingling in groin region. No urinary retention but he did notice some incontinence occasionally which is new. ROS otherwise negative including CP, SOB, palpitations, rash development. Of note, patient with ED visit 06/20 for midsternal chest pain which was ruled out for ACS w/ discharge and PMD follow up. In ED patient received imaging showing lumbar destructive process for which neuroSx consulted and recommended transfer to [facility] and oncology evaluation. Currently patient labwork for myeloma workup in PROCESS. Allergy: NKDA Social: Denied drugs, ETOH. 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 Family Hx: Mother: liver Ca. Father: Heart disease Surgical: Hernia repair Medications: ASA 81mg ( infrequently uses). Lisinpril Medical history: HTN Diagnosis (1) Bone marrow edema: (2) Back pain at L4-L5 level: (3) Hypertension: (4) Weakness: Inpatient Certification Inpatient Certification: I certify that the inpatient services were ordered in accordance with Medicare regulations governing the order. This includes certification that hospital inpatient services are reasonable and necessary and in the case of services not specified as inpatient-only under 42 CFR 419.22(n), that they are appropriately provided as inpatient services in accordance to with the 2-midnight benchmark under 43 CFR 412.3(e) Estimated Total Length of Stay (Days): 3 Plans for Post Hospital Care: Home Review of Systems Review of Systems: all other systems reviewed are negative [facility] Medical History Medical History Murmur, heart (Acute) History of cardiac murmur as a child (Acute) Surgical History Surgical History Hx of hernia repair (Acute) Family History Family History Father Family history of heart disease Mother History of liver cancer Social History Social History Substance History: No History of Abuse Second Hand Smoke Exposure: No Smoking Status: Former smoker Tobacco Type: Cigarettes How Often Do You Have a Drink Containing Alcohol: Never Immunization History Tetanus Immunization: <5 Years Medications and Allergies Allergies Allergy/AdvReac Type Severity Reaction Status Date / Time No Known Allergies Allergy Verified 07/29/18 16:00 Home Medications Medication Instructions Recorded Confirmed Type lisinopril 2.5 mg PO DAILY PRN 07/01/18 07/29/18 History Active Medications: Active Medications Acetaminophen (Tylenol) 650 mg PO Q4H PRN PRN Reason: Temp > 100.4 Bisacodyl (Dulcolax Supp) 10 mg RECTAL DAILY PRN PRN Reason: SEVERE CONSITIPATION Enoxaparin Sodium (Lovenox Inj) 30 mg SQ Q24H CHARIS Sodium Chloride (Ns Inj) 1,000 mls @ 100 mls/hr IV.CONT .Q10H CHARIS Last Infusion: 07/30/18 09:19 Dose: 0 mls/hr Lisinopril (Prinivil) 2.5 mg PO DAILY PRN PRN Reason: HYPERTENSION Last Admin: 07/30/18 00:06 Dose: 2.5 mg Morphine Sulfate (Morphine Inj) 4 mg IV.PUSH Q3H PRN PRN Reason: pain 7 - 10 Morphine Sulfate (Morphine Inj) 2 mg IV.PUSH Q3H PRN PRN Reason: pain 3 - 6 Last Admin: 07/30/18 00:45 Dose: 2 mg Ondansetron HCl (Zofran Inj) 4 mg IV.PUSH Q6H PRN PRN Reason: NAUSEA OR VOMITING Sennosides (Senokot) 17.2 mg PO Q12H PRN PRN Reason: Moderate Constipation Sodium Chloride (Ns Flush) 2 ml IV.FLUSH PRN PRN PRN Reason: FLUSH AFTER USING IV ACCESS Temazepam (Restoril) 15 mg PO HS PRN PRN Reason: INSOMNIA Physical Exam Vital signs: Last Vital Signs Temp 98.9 F 07/29/18 15:28 Pulse 75 07/30/18 08:52 Resp 16 07/30/18 08:52 BP 146/92 H 07/30/18 08:52 Pulse Ox 97 07/30/18 08:52 Intake & Output 07/28/18 07/29/18 07/30/18 07/31/18 06:59 06:59 06:59 06:59 Intake Total 1120 / 1120 Output Total 100 / 100 300 / 300 Balance -100 / -100 820 / 820 Weight 90.7 kg General: No acute distress, conversational HEENT: EOMI, PERRLA Cardiovascular: S1/S2. No murmurs rubs or gallops noted Respiratory: Clear to auscultation anteriorly posteriorly. No intercostal muscle use Gastro: Soft, nontender, nondistended, no guarding or rebound appreciated. Neurology: Cranial nerves II through XII intact. No facial droop. No slurred speech. Power 5/5 upper and lower extremities bilaterally. V1, V2, V3 intact. Negative straight leg raise Orthopedic: No paraspinal tenderness noted. Small bulge noted near L5 vertebra. Nontender in nature. Skin: No rash noted Extremity: 2+ bilateral dorsalis pedis pulse and radial pulse appreciated bilaterally. No calf tenderness, no edema lower extremity. Results Labs CBC & Chem 7: 07/30/18 06:00 07/30/18 06:00 Imaging Impressions Lumbar Spine X-Ray 07/29/18 16:14 CONCLUSION: Destructive process involving L4 vertebral body. Further evaluation with pre and postcontrast MRI of the lumbar spine suggested. Lumbar Spine MRI 07/29/18 17:19 CONCLUSION: 1. Abnormal L4 vertebral body with subtle marrow edema and L2 and L4 without obvious enhancement. This has the appearance of a long-standing process. 2. Marrow appears osteoporotic with minimal endplate depression of L1 and L2.. 3. Marrow replacing process such as a myeloma should be excluded clinically. 4. Bone scan may help in determining whether or not this is an acute or chronic process. 5. If a small inflammatory process such as tuberculosis is a consideration this could be biopsied precariously as well. Caprini VTE Risk Assessment Caprini VTE Risk Assessment: No/Low Risk (score <= 1) Caprini Risk Assessment Model: Point Value = 1 Point Value = 2 Point Value = 3 Point Value = 5 Age 41-60 Minor surgery BMI > 25 kg/m2 Swollen legs Varicose veins or History of unexplained or recurrent spontaneous Oral contraceptives or hormone replacement Sepsis (< 1 month) Serious lung disease, including pneumonia (< 1 month) Abnormal pulmonary function Acute myocardial infarction Congestive heart failure (< 1 month) History of inflammatory bowel disease Medical patient at bed rest Age 61-74 Arthroscopic surgery Major open surgery (> 45 min) Laparoscopic surgery (> 45 min) Malignancy Confined to bed (> 72 hours) Immobilizing plaster cast Central venous access Age >= 75 History of VTE Family history of VTE Factor V Leiden Prothrombin [id number] Lupus anticoagulant Anticardiolipin antibodies Elevated serum homocysteine Heparin-induced thrombocytopenia Other congenital or acquired thrombophilia Stroke (< 1 month) Elective arthroplasty Hip, pelvis, or leg fracture Acute spinal cord injury (< 1 month) Prophylaxis Regimen: Total Risk Factor Score Risk Level Prophylaxis Regimen 0-1 Low Early ambulation 2 Moderate Order ONE of the following: *Sequential Compression Device (SCD) *Heparin 5000 units SQ BID 3-4 Higher Order ONE of the following medications: *Heparin 5000 units SQ TID *Enoxaparin/Lovenox 40 mg SQ daily (WT < 150 kg, CrCl > 30 mL/min) *Enoxaparin/Lovenox 30 mg SQ daily (WT < 150 kg, CrCl > 10-29 mL/min) *Enoxaparin/Lovenox 30 mg SQ BID (WT < 150 kg, CrCl > 30 mL/min) AND/OR *Sequential Compression Device (SCD) 5 or more Highest Order ONE of the following medications: *Heparin 5000 units SQ TID (Preferred with Epidurals) *Enoxaparin/Lovenox 40 mg SQ daily (WT < 150 kg, CrCl > 30 mL/min) *Enoxaparin/Lovenox 30 mg SQ daily (WT < 150 kg, CrCl > 10-29 mL/min) *Enoxaparin/Lovenox 30 mg SQ BID (WT < 150 kg, CrCl > 30 mL/min) AND *Sequential Compression Device (SCD) Assessment and Plan (1) Bone marrow edema: Code(s): D75.89 - Other specified diseases of blood and blood-forming organs Status: Acute (2) Back pain at L4-L5 level: Code(s): M54.5 - Low back pain Status: Acute (3) Hypertension: Code(s): I10 - Essential (primary) hypertension Status: Acute (4) Weakness: Code(s): R53.1 - Weakness Status: Acute Plan Musk: L4 destructive process - NeuroSx consulted and recommendations appreciated via EMR. Requesting transfer to [facility] for further evaluation. - Myeloma workup PENDING: CHELSEY, SPEP/UPEP - CT chest/abd pelvis - PENDING - CEA for AM - Oncology consultation placed previously. Non-ugent and routine acceptable - TSLO bracing ordered 07/30 - PT evaluation. - continue pain control as ordered w/ supportive bowel regimen - Neuro checks - very low concern for TB as no risk factors ( nursing home, travel, visitors, or contacts.). Lower concern for POT's disease currently. Will continue workup and broaden differential as needed moving foward. Suspect mild anemia of 10.7 due to fluid resuscitation. No evidence of hypercalcemia. Bone pain positive. No evidence of renal abnormality at this time. Possible patient may have variation of myelomatous disorder however. Workup still in progress Cardiology: HTN - continue lisinopril - discontinue IVF hydration. Code: LARA DVT ppx: lovenox dispo: Transfer to [facility] for NeuroSx evaluation. Oncology consult. Plan discussed in part with patient and nursing. All questions answered. Code Status: lara
[2018-07-30 10:42] LABS: Kappa Lambda Ratio 9.84 (1.57-3.93); Lambda Light Chain 50 mg/dL (90-210)
[2018-07-30 10:51] LABS: Immunoglobulin G 866 mg/dL (660-1620)
--- NOTE | 2018-07-30 11:04 | CT ---
EXAM DATE: 07/30/2018 10:58 AM EST AGE/SEX: 47 years / Male INDICATIONS: Pathologic fracture of L4. Evaluate for metastatic disease. CLINICAL DATA: This is the patient's initial encounter. Patient reports that signs and symptoms have been present for 3 days and indicates a pain score of 8/10. MEDICAL/SURGICAL HISTORY: . Heart murmur. Inguinal hernia repair. RADIATION DOSE: 16.55 CTDI (mGy) ; Combined studies COMPARISON: No prior exams available for comparison. TECHNIQUE: Multiple contiguous axial images were obtained through the chest during bolus infusion of 95 ml Omnipaque 350 (iohexol) nonionic water-soluble contrast as a cumulative dose for multiple exa ms. Images were obtained in suspended respiration using multiple row detector helical technique. U sing automated exposure control and adjustment of the mA and/or kV according to patient size, radiati on dose was kept as low as reasonably achievable to obtain optimal diagnostic quality images. DICOM format image data is available electronically for review and comparison. FINDINGS: The pulmonary parenchyma is clear. No suspicious mass lesions are identified. The heart is normal in size. There is no hilar or mediastinal adenopathy present. No axillary adenopa thy is seen. There is no pericardial or pleural effusion. The limited portions of upper abdomen visualized are unremarkable. Bone windowed imaging is provided. These demonstrate a lytic lesions throughout all the ribs and the thoracic vertebral bodies. This would suggest the possibility of multiple myeloma. CONCLUSION: 1. Diffuse, punctate lytic lesions throughout the osseous structures this is concerning for multiple myeloma. 2. The lungs are clear. Electronically signed by: Nik Street MD 07/30/2018 11:02 AM EST
--- NOTE | 2018-07-30 11:09 | CT ---
EXAM DATE: 07/30/2018 11:02 AM EST AGE/SEX: 47 years / Male INDICATIONS: Pathologic fracture of L4. Evaluate for metastatic disease. CLINICAL DATA: This is the patient's initial encounter. Patient reports that signs and symptoms have been present for 3 days and indicates a pain score of 8/10. MEDICAL/SURGICAL HISTORY: . Heart murmur. Inguinal hernia repair. ORAL CONTRAST: No oral contrast ingested. RADIATION DOSE: 16.55 CTDI (mGy) ; Combined studies COMPARISON: . TECHNIQUE: Multiple contiguous axial images were obtained through the abdomen and pelvis following b olus infusion of 95 ml Omnipaque 350 (iohexol) nonionic water-soluble contrast as a cumulative dose for multiple exams. No oral contrast ingested. Using automated exposure control and adjustment of t he mA and/or kV according to patient size, radiation dose was kept as low as reasonably achievable to obtain optimal diagnostic quality images. DICOM format image data is available electronically for r eview and comparison. FINDINGS: The limited portion of lung base visualized is clear. The appearance of the liver, spleen, pancreas, adrenal glands and kidneys is within normal limits. The abdominal aorta is normal in caliber. There is no retroperitoneal lymphadenopathy. The visualized loops of small and large bowel in the upper abdomen are unremarkable in appearance. No free air free fluid is seen. The anterior abdominal wall is intact. There is no free fluid within the pelvis. No iliac or inguinal adenopathy is present. Bone windowed imaging is provided. These demonstrate small lytic lesions throughout the hips, the pel vis, the lumbar spine, the visualized thoracic spine and ribs. The examination demonstrates a severe compression fracture of L4. There is mild compression fracture of the superior endplates of L1 and L2 . CONCLUSION: 1. There are lytic lesions diffusely throughout the osseous structures concerning for multiple myelo ma. 2. Pathologic fracture of L4. 3. Probable pathologic fractures of L1 and L2 as well. Electronically signed by: Nik Street MD 07/30/2018 11:07 AM EST
[2018-07-30] MEDS ORDERED: Chlorhexidine 4% Topical 120 APPLIC/120 ML Bottle TOPICAL ONE (16:00)
--- NOTE | 2018-07-30 16:24 | P.PNNS ---
Subjective Interval history: c/o back pain Physical Exam Vital signs: Vital Signs 07/29/18 17:15 07/29/18 19:55 07/29/18 22:15 Temperature Pulse Rate 88 68 Respiratory Rate 16 18 Blood Pressure 157/90 H 155/90 H Pulse Oximetry 96 07/30/18 00:00 07/30/18 00:51 07/30/18 01:15 Temperature Pulse Rate 67 78 Respiratory Rate 18 18 18 Blood Pressure 168/103 H 150/90 H Pulse Oximetry 99 07/30/18 04:00 07/30/18 06:00 07/30/18 07:18 Temperature Pulse Rate 82 75 70 Respiratory Rate 18 18 18 Blood Pressure 162/98 H 160/91 H 140/90 Pulse Oximetry 95 07/30/18 08:13 07/30/18 08:52 07/30/18 11:38 Temperature Pulse Rate 75 75 73 Respiratory Rate 18 16 16 Blood Pressure 144/89 H 146/92 H 155/95 H Pulse Oximetry 98 97 97 07/30/18 16:11 Temperature 98.5 F Pulse Rate 72 Respiratory Rate 18 Blood Pressure 140/79 Pulse Oximetry Intake & Output 07/29/18 07/30/18 07/30/18 18:59 06:59 18:59 Intake Total 1220 / 1220 Output Total 100 / 100 300 / 300 Balance -100 / -100 920 / 920 Weight 90.7 kg Intake: IV 1100 / 1100 NS Inj 1,000 ML @ 100 mls/hr IV 1100 / 1100 .CONT .Q10H CHARIS Rx#:[id number] Oral 120 / 120 Output: Urine 100 / 100 300 / 300 Other: # Voids 1 Narrative: GENERAL: Laying in bed NAD SKIN: Warm and dry. HEAD: Atraumatic. Normocephalic. EYES: Pupils equal and round. No scleral icterus. No injection or drainage. ENT: No nasal bleeding or discharge. Mucous membranes pink and moist. NECK: Trachea midline. No JVD. CARDIOVASCULAR: Regular rate and rhythm. RESPIRATORY: No accessory muscle use. Clear to auscultation. Breath sounds equal bilaterally. GASTROINTESTINAL: Abdomen soft, non-tender, nondistended. Hepatic and splenic margins not palpable. MUSCULOSKELETAL: Extremities without clubbing, cyanosis, or edema. No obvious deformities. NEUROLOGICAL: Awake and alert. No obvious cranial nerve deficits. Motor grossly within normal limits. Five out of 5 muscle strength in the arms and legs. Normal speech. Assessment and Plan - Plan 47 y/o male with progressive low back pain Lumbar Spine X-Ray 07/29/18 16:14 CONCLUSION: Destructive process involving L4 vertebral body. Further evaluation with pre and postcontrast MRI of the lumbar spine suggested. Lumbar Spine MRI 07/29/18 17:19 CONCLUSION: 1. Abnormal L4 vertebral body with subtle marrow edema and L2 and L4 without obvious enhancement. This has the appearance of a long-standing process. 2. Marrow appears osteoporotic with minimal endplate depression of L1 and L2.. 3. Marrow replacing process such as a myeloma should be excluded clinically. 4. Bone scan may help in determining whether or not this is an acute or chronic process. 5. If a small inflammatory process such as tuberculosis is a consideration this could be biopsied precariously as well. Neuro: neuro checks in a serial fashion. Recommend metastatic workup. CT chest, abdomen, pelvis. Consult oncology. Send urine for Bence protein. Sed rate , C reactive protein. Consider PPD with control. Rule out TB. Consider infectious disease consultation. CEA to rule out colon cancer Bed rest for now. TLSO brace Pain control with analgesics MRI Lumbar spine reviewed by DR. Keene, recommends ORIF L4 pathological fracture , with posterolateral fixation using transpedicular screws and rods scheduled for tomorrow, will send biopsy as well NPO tonight midnight Continue Protonix for stress ulcer prophylaxis Continue Kenrick hose and SCD's for DVT prophylaxis
[2018-07-30 22:29] LABS: Calcium 8.7 mg/dL (8.5-10.1); Carbon Dioxide 27.3 meq/L (21.0-32.0); Potassium 3.6 meq/L (3.5-5.1)
[2018-07-31 07:05] LABS: Baso % (Auto) 0.7 % (0.0-2.0); Eos # (Auto) 0.1 th/mm3 (0.0-0.4); Eos % (Auto) 1.9 % (0.0-4.0); Hematocrit 33.2 % (39.0-51.0); Hemoglobin 11.9 gm/dL (13.0-17.0); Lymph % (Auto) 47.1 % (9.0-44.0); Mean Corpuscular Hemoglobin 32.7 pg (27.0-34.0); Mean Corpuscular Volume 90.8 fL (80.0-100.0); Mean Platelet Volume 8.2 fL (7.0-11.0); Mono # (Auto) 0.6 th/mm3 (0.0-0.9); Mono % (Auto) 14.4 % (0.0-8.0); Neut # (Auto) 1.5 th/mm3 (1.8-7.7); Neut % (Auto) 35.9 % (16.0-70.0); Platelet Count 213 th/mm3 (150-450); Red Blood Count 3.65 mil/mm3 (4.50-5.90); Red Cell Distribution Width 13.6 % (11.6-17.2); White Blood Count 4.2 th/mm3 (4.0-11.0)
[2018-07-31 07:11] LABS: Prothrombin Time 10.4 sec (9.8-11.6)
[2018-07-31 07:28] LABS: Calcium 9.4 mg/dL (8.5-10.1); Carbon Dioxide 29.2 meq/L (21.0-32.0); Carcinoembryonic Antigen 1.2 ng/mL (0.2-5.0); Potassium 4.4 meq/L (3.5-5.1)
[2018-07-31 08:04] LABS: Ovalocytes 1+; Platelet Estimate Normal (Normal); Platelet Morphology Normal (Normal)
[2018-07-31] MEDS: Enoxaparin Inj 40 MG/0.4 ML Syringe SQ SCH (09:00)
--- NOTE | 2018-07-31 10:25 | ECG ---
Date Performed: 07/30/2018 Time Performed: 17:59:31 PTAGE: 47 years EKG: Sinus rhythm NORMAL ECG PREVIOUS TRACING : 07/01/2018 10.45 DOCTOR: Jose Alberto Moffett Interpretating Date/Time 07/31/2018 10:24:33
--- NOTE | 2018-07-31 10:37 | P.PN ---
Subjective Interval history: Follow-up visit for L4 destructive process with suspicion for myeloma. Patient seen and examined resting in bed with at bedside. Patient reports bilateral lower back pain, has not been taking pain medication. Reports that his pain is aching in consistency and is mostly present when he moves or walks around. Denies any fevers, chills, nausea, vomiting, diarrhea, cough, shortness of breath, dysuria. Discussed with patient and at bedside, surgical procedure today by neurosurgery as well as pending oncology consult for further evaluation. Physical Exam Vital signs: Vital Signs 07/30/18 11:38 07/30/18 16:11 07/30/18 20:00 Temperature 98.5 F 97.8 F Pulse Rate 73 72 84 Respiratory Rate 16 18 16 Blood Pressure 155/95 H 140/79 122/58 L Pulse Oximetry 97 95 07/30/18 23:21 07/31/18 04:01 07/31/18 08:00 Temperature 98.1 F 98.1 F 98.4 F Pulse Rate 65 77 73 Respiratory Rate 18 18 16 Blood Pressure 142/82 H 145/83 H 151/76 H Pulse Oximetry 97 98 97 Intake & Output 07/30/18 07/31/18 07/31/18 18:59 06:59 18:59 Intake Total 1220 / 1220 0 / 0 Output Total 300 / 300 Balance 920 / 920 0 / 0 Weight 88.904 kg 88.9 kg Intake: IV 1100 / 1100 NS Inj 1,000 ML @ 100 mls/hr IV 1100 / 1100 .CONT .Q10H CHARIS Rx#:[id number] Oral 120 / 120 0 / 0 Output: Urine 300 / 300 Other: # Voids 1 Date of Last Bowel Movement 07/29/18 # Bowel Movements 0 Weight On Admission 88.904 kg Narrative: GENERAL: Well-nourished, well-developed AA male in no acute distress. SKIN: Warm and dry. HEAD: Atraumatic. Normocephalic. EYES: Pupils equal and round. No scleral icterus. No injection or drainage. ENT: No nasal bleeding or discharge. Mucous membranes pink and moist. NECK: Trachea midline. CARDIOVASCULAR: Regular rate and rhythm. RESPIRATORY: No accessory muscle use. Clear to auscultation. Breath sounds equal bilaterally. GASTROINTESTINAL: Abdomen soft, non-tender, nondistended. + Bowel sounds MUSCULOSKELETAL: Extremities without clubbing, cyanosis, or edema. No obvious deformities. NEUROLOGICAL: Awake, alert, oriented x3. No obvious cranial nerve deficits. Motor grossly within normal limits. Five out of 5 muscle strength in the arms and legs. Normal speech. PSYCHIATRIC: Appropriate mood and affect; insight and judgment normal. Results - Labs CBC & Chem 7: 07/31/18 06:20 07/31/18 06:20 Laboratory Results - last 24 hr 07/30/18 07/30/18 07/30/18 08:05 22:02 23:16 WBC RBC Hgb Hct MCV MCH MCHC RDW Plt Count MPV Prelim Diff (Auto) Neut % (Auto) Lymph % (Auto) [place] % (Auto) Eos % (Auto) Baso % (Auto) Neut # (Auto) Lymph # (Auto) [place] # (Auto) Eos # (Auto) Baso # (Auto) WBC Differential Diff Scan Differential Comment Platelet Estimate Platelet Morphology Ovalocytes PT INR Sodium 141 Potassium 3.6 Chloride 106 Carbon Dioxide 27.3 Anion Gap 8 BUN 11 Creatinine 1.42 H Estimated GFR 65 L POC Glucose 98 Random Glucose 99 Calcium 8.7 D Total Protein (PEP) 6.4 Carcinoembryonic Ag IgG 866 IgA Less than 40 L IgM Less than 30 L Aurelia/Lambda Ratio 9.84 H Aurelia Light Chain Anal 492 H Lambda Light Chain Anal 50 L 07/31/18 07/31/18 07/31/18 06:20 06:20 06:20 WBC 4.2 RBC 3.65 L Hgb 11.9 L Hct 33.2 L MCV 90.8 MCH 32.7 MCHC 36.0 RDW 13.6 Plt Count 213 MPV 8.2 Prelim Diff (Auto) Slide review pending Neut % (Auto) 35.9 Lymph % (Auto) 47.1 H [place] % (Auto) 14.4 H Eos % (Auto) 1.9 Baso % (Auto) 0.7 Neut # (Auto) 1.5 L Lymph # (Auto) 2.0 [place] # (Auto) 0.6 Eos # (Auto) 0.1 Baso # (Auto) 0.0 WBC Differential . Diff Scan Auto diff confirmed Differential Comment . Platelet Estimate Normal Platelet Morphology Normal Ovalocytes 1+ H PT 10.4 INR 1.0 Sodium 140 Potassium 4.4 D Chloride 105 Carbon Dioxide 29.2 Anion Gap 6 BUN 11 Creatinine 1.36 H Estimated GFR 69 L POC Glucose Random Glucose 86 Calcium 9.4 Total Protein (PEP) Carcinoembryonic Ag 1.2 IgG IgA IgM Aurelia/Lambda Ratio Aurelia Light Chain Anal Lambda Light Chain Anal 07/31/18 08:40 WBC RBC Hgb Hct MCV MCH MCHC RDW Plt Count MPV Prelim Diff (Auto) Neut % (Auto) Lymph % (Auto) [place] % (Auto) Eos % (Auto) Baso % (Auto) Neut # (Auto) Lymph # (Auto) [place] # (Auto) Eos # (Auto) Baso # (Auto) WBC Differential Diff Scan Differential Comment Platelet Estimate Platelet Morphology Ovalocytes PT INR Sodium Potassium Chloride Carbon Dioxide Anion Gap BUN Creatinine Estimated GFR POC Glucose 89 Random Glucose Calcium Total Protein (PEP) Carcinoembryonic Ag IgG IgA IgM Aurelia/Lambda Ratio Aurelia Light Chain Anal Lambda Light Chain Anal - Imaging Impressions Abdomen/Pelvis CT 07/30/18 00:00 CONCLUSION: 1. There are lytic lesions diffusely throughout the osseous structures concerning for multiple myeloma. 2. Pathologic fracture of L4. 3. Probable pathologic fractures of L1 and L2 as well. Chest CT 07/30/18 00:00 CONCLUSION: 1. Diffuse, punctate lytic lesions throughout the osseous structures this is concerning for multiple myeloma. 2. The lungs are clear. Assessment and Plan - Assessment (1) Bone marrow edema Code(s): D75.89 - Other specified diseases of blood and blood-forming organs Status: Acute (2) Back pain at L4-L5 level Code(s): M54.5 - Low back pain Status: Acute (3) Hypertension Code(s): I10 - Essential (primary) hypertension Status: Acute (4) Weakness Code(s): R53.1 - Weakness Status: Acute - Plan 47-year-old male with past medical history significant for hypertension who presented to the emergency department on 07/29 with complaints of worsening back pain over the past several weeks. L4 destructive process - NeuroSx consulted, recommendations appreciated. Plans for L4 pathological fracture, with posterolateral fixation using transpedicular screws and rods today. Biopsys to be obtained. -TLSO brace for now - Myeloma workup PENDING: CHELSEY, SPEP/UPEP - CT abd/pelv with lytic lesions diffusely through the osseous structures concerning for multiple myeloma, noted pathologic fracture of L4, probable pathologic fractures of L1 and L2 as well. - CT chest with diffuse punctate lytic lesions throughout the osseous structures concerning for multiple myeloma, lungs are clear. - CEA for AM - Oncology consulted, appreciate assistance and recommendations. - PT evaluation. - continue pain control as ordered w/ supportive bowel regimen - Neuro checks - very low concern for TB as no risk factors ( senior living, travel, visitors, or contacts.). Lower concern for Pott's disease currently. Will continue workup and broaden differential as needed moving forward. Anemia, mild Likely due to fluid resuscitation. No evidence of hypercalcemia. HTN, chronic - continue lisinopril -BP mildly elevated, likely due to pain, continue to monitor and adjust medications accordingly Abnormal creatinine - June creatinine 1.2 - Creatinine 1.42-->1.36, s/p IVF, continue to encourage oral hydration - Monitor BMP DVT prophylaxissubcu Lovenox (hold due to surgical procedure this morning), SCDs Discussed Condition With: Patient, , RN
[2018-07-31] MEDS ORDERED: Thrombin Topical Soln 5,000 UNIT Vial TOPICAL ONE ×2 (12:08→15:40)
[2018-07-31] MEDS ORDERED: Gelatin Size 100 Topical Foam ONE (12:09)
[2018-07-31] MEDS ORDERED: ceFAZolin 1 GM Premix Inj 2 GM/100 ML FROZ.PIGGY IV.SIG ONE (12:09)
[2018-07-31] MEDS ORDERED: Propofol Inj 500 MG/50 ML Vial ONE ×2 (12:18→14:22)
[2018-07-31] MEDS ORDERED: Chlorhexidine Gluconate 2% 1 Pack (2 Cloths) TOPICAL ONE (12:45)
[2018-07-31] MEDS ORDERED: Sodium Chlor 0.9% Inj 500 ML IV.CONT ONE (12:45)
[2018-07-31] MEDS ORDERED: Metoprolol Tartrate 25 MG Tablet PO ONE (12:45)
[2018-07-31] MEDS ORDERED: Bupivacaine/Epinephrine PF Inj 0.5% 30 ML Vial ONE (12:55)
[2018-07-31] MEDS ORDERED: Sodium Chlor 0.9% Inj 250 ML ONE (12:55)
[2018-07-31] MEDS ORDERED: Dexmedetomidine Inj 200 MCG/2 ML Vial ONE (14:01)
[2018-07-31] MEDS ORDERED: HYDROmorphone PF Inj 2 MG/ML Vial ONE (14:01)
[2018-07-31] MEDS ORDERED: fentaNYL Citrate Inj 100 MCG/2 ML Ampul ONE ×3 (14:01→17:58)
[2018-07-31 15:58] LABS: ABG Base Excess -0.1 mmol/L (-2-2); ABG PCO2 31 mmHg (38-42); ABG PO2 388 mmHG (61-120)
[2018-07-31] MEDS ORDERED: ceFAZolin 1 GM Premix Inj 1 GM/50 ML FROZ.PIGGY IV.SIG ONE (16:00)
[2018-07-31 16:06] LABS: Hematocrit 26.2 % (39.0-51.0); Hemoglobin 9.8 gm/dL (13.0-17.0)
[2018-07-31] MEDS ORDERED: Bisacodyl 10 MG Supp RECTAL PRN (17:21)
[2018-07-31] MEDS ORDERED: Aluminum/Magnesium/Simethacone Susp 30 ML UDC PO PRN (17:21)
[2018-07-31] MEDS ORDERED: Menthol 5.8 MG Lozenge BUCCAL PRN (17:21)
[2018-07-31] MEDS ORDERED: Naloxone Inj 0.4 MG/ML Vial IV.PUSH PRN (17:24)
--- NOTE | 2018-07-31 17:55 | XR ---
EXAM DATE: 07/31/2018 5:50 PM EST AGE/SEX: 47 years / Male INDICATIONS: Lumbar fusion. L2-L5. CLINICAL DATA: This is the patient's initial encounter. Patient reports that signs and symptoms have been present for 1 day and indicates a pain score of Nonresponsive. MEDICAL/SURGICAL HISTORY: Non-responsive. Non-responsive. COMPARISON: [facility], LUMBAR SPINE LTD AP&LAT, 07/29/2018. . FINDINGS: Posterior fusion hardware is noted from L2 through L5 and appears to be in good position. Significant compression deformity involving L4 is stable. Mild compression deformity involving L2 is also stable . CONCLUSION: 1. Posterior fusion hardware is noted from L2 through L5 and appears to be in good position. 2. Significant compression deformity involving L4 is stable. Mild compression deformity involving L2 is also stable. Electronically signed by: Jono Fisher MD 07/31/2018 5:54 PM EST
--- NOTE | 2018-07-31 18:10 | P.OP ---
Preoperative Diagnosis: Pathological L4 burst fracture Postoperative Diagnosis: Pathological L4 burst fracture Date of procedure: 07/31/18 Procedure: L4 laminectomy, open reduction of burst fracture, L2-L5 posterolateral fusion using autologous bone graft combined with demineralized bone matrix, L2-L5 segmental instrumented fixation using transpedicular screws and rods, microsurgical dissection Anesthesia: AYE Surgeon: Baldemar Keene MD Interior Design Instructor: Aranza Eaton Pathology: other (L4 vertebral body) Operation and Findings: INDICATIONS FOR THE SURGICAL PROCEDURE Mr Ch is a 47 year-old male who presented with severe mechanical back pain and weakness related to a L4 pathological burst spinal fracture. A surgical procedure was indicated as the moist appropriate treatment to relief severe neural compression. The [id number] details of the procedure, indications, alternatives, risks and potential complications were fully discussed with the patient. The patient fully understood. All questions were answered. No guarantees were given. The patient voiced requesting the procedure and provided informed consents. The patient had been offered the alternative of delaying the procedure and continuing with nonsurgical management. DETAILS OF THE SURGICAL PROCEDURE Prior to the procedure,the surgical incision was marked in the preoperative surgical holding room, and the procedure, risks, and potential complications revisited with the patient. Placement of electrodes for intraoperative neurophysiological monitoring was completed. The patient was taken to the operative room, and following induction of general anesthesia, endotracheal intubation was performed. A Muñoz catheter bilateral Kenrick and sequential compression devices were placed and kept throughout the procedure. The patient was carefully rolled into the prone position over a Hill table with a gel rolls. All pressure points were carefully padded with eggcrate mattress. The eyes were tapped shut after ointment was applied by the anesthesiologist to prevent corneal abrasion. A Milagros hugger was placed over the exposed lower body to maintain control of the core body temperature. The electrophysiological team placed the needles and electrodes in their proper location and baseline SSEP's and motor evoked potentials were registered. The thoracic lumbar region was prepped and draped in the usual sterile fashion. A localizing X-ray was performed with the C-arm and the fracture was localized. Two paramedian incisions were outlined from the spinous process of L2 down to L5 Surgical Approach Two paramedian small incisions were outlined on the skin approximately 3cm from the midline. The skin incisions were made with a #10 blade. Small bleeders were controlled with the cautery. The dissection was then carried out into deeper planes and through the thoracolumbar fascia with a Bovie. The intermuscular septum was identified and the muscles were blunted dissected along the septum. The facets and transverse process of L2-3, L3-4, L4-5 were exposed and the proper anatomical landmarks were identified. A microsurgical self-retaining retractor was placed on the incision, and a localizing lateralizing cross-table x-ray was performed with an instrument underneath a lamina of the lumbar spine. INSTRUMENTAL FIXATION At this point in the procedure, placement of bilateral transpedicular screws was necessary for stabilization of the spine. Initially, the entry point for the screw was selected anatomically at the junction of the facet, with the transverse process, and the pars interarticularis at L2-3, L3-4, L4,5. This was started with a Giamshetti needle, followed by the use of K wire. A tap was used to create the threads for the screws. Initially bilateral transpedicular screws were carefully placed bilaterally at L3, and L5 under fluoroscopic visualization , with only a right sided screw at L5 as the left pedicle was destroyed by the infiltrating neoplasm. A weak purchase was achieved with all screws. In order to strenghten the construct, bilateral transpedicular screws were placed at L2 The position of each screw was assessed anatomically with an AP, lateral, oblique Xrays. An intraoperative scan view of the spine was then performed using the iso-centric c-arm. Each screw was then assessed electrophysiologically stimulating each screw with a nerve stimulator. Open reduction of the fracture Once all screws were in position, the operative microscope was draped in the usual sterile fashion and brought to the field. The rest of the surgical procedure was performed using microdissection technique with the exception of the closure. Under the operative microscope, a laminectomy was performed at L4 bilaterally. It was necessary to drill the facet entrance to the pedicle in order to allow access to the anterior surface of the thecal sac without retraction on the dural sac and spinal cord. Epidural veins were coagulated with the bipolar and incised with the microscissors. The retropulsed bones were assessed with an nerve hook. They were causing significant compression of the dural sac. A shoe impactor was placed on the anterior epidural space and the bone fragments were impacted back into the vertebral body under fluoroscopic guidance. A good decompression was achieved using this technique. Posterolateral fusion Then, the lateral gutters of the spine, facets and transverse processes were carefully decorticated with a TPS drill in preparation for the posterior lateral fusion. The incision was thoroughly irrigated with antibiotic solution. The posterolateral fusion was performed by carefully packing the gutters of the spine at L2-3 and L3-L4 with a autologous bone graft combined with demineralized bone matrix. Completion of the Procedure The rods were brought to the field. Sequential application of the cap was achieved. Then, the incision was thoroughly irrigated with several liters of antibiotic solution. The decompression was reassessed with an nerve hook and found to be appropriate. The incision was then closed in layers. 0 Vicryl with interrupted sutures were used to close the thoracolumbar fascia. The superficial fascia was closed with 0 Vicryl sutures. Three-0 Vicryl was used to close the subcutaneous tissue. The skin was closed with alba. At the end of the procedure the sponges, needles, and instrument counts were all correct. Estimated blood loss was 600 cc's. No complications occurred. The patient received prophylactic antibiotics. The patient was then extubated and transferred to the recovery room in stable condition. The entire procedure was performed using electrophysiological monitor of the electromyogram, evoked potential and sphincters. No intraoperative abnormalities were detected.
[2018-07-31 18:17] LABS: Hematocrit 26.4 % (39.0-51.0); Hemoglobin 9.6 gm/dL (13.0-17.0); Mean Corpuscular Hemoglobin 32.8 pg (27.0-34.0); Mean Corpuscular Volume 90.4 fL (80.0-100.0); Platelet Count 187 th/mm3 (150-450); Red Blood Count 2.92 mil/mm3 (4.50-5.90); Red Cell Distribution Width 13.5 % (11.6-17.2); White Blood Count 4.7 th/mm3 (4.0-11.0)
[2018-07-31 18:22] LABS: Mean Corpuscular HGB Conc 36.3 % (32.0-36.0)
[2018-07-31] MEDS: HYDROmorphone PCA Inj 6 MG/30 ML PCA.VIAL PCA PRN (18:30)
[2018-07-31] MEDS: Sod Chloride 0.9% Inj 1,000 ML IV.CONT SCH (18:30)
[2018-07-31 18:37] LABS: Calcium 8.6 mg/dL (8.5-10.1); Carbon Dioxide 26.5 meq/L (21.0-32.0); Potassium 4.2 meq/L (3.5-5.1)
[2018-07-31] MEDS: ceFAZolin 2 GM Premix Inj 2 GM/50 ML PIGGYBACK IV.SIG SCH (22:00)
[2018-08-01] MEDS: Sod Chloride 0.9% Inj 1,000 ML IV.CONT SCH ×3 (03:48→23:40)
[2018-08-01] MEDS: Senna/Docusate Sodium 8.6/50 MG Tablet PO SCH ×3 (03:48→20:37)
[2018-08-01 05:16] LABS: Hematocrit 23.8 % (39.0-51.0); Hemoglobin 8.7 gm/dL (13.0-17.0); Lymph # (Auto) 0.9 th/mm3 (1.0-4.8); Lymph % (Auto) 11.3 % (9.0-44.0); Mean Corpuscular Hemoglobin 32.4 pg (27.0-34.0); Mean Corpuscular Volume 88.2 fL (80.0-100.0); Mean Platelet Volume 8.2 fL (7.0-11.0); Mono # (Auto) 0.8 th/mm3 (0.0-0.9); Mono % (Auto) 10.5 % (0.0-8.0); Neut # (Auto) 6.1 th/mm3 (1.8-7.7); Neut % (Auto) 78.2 % (16.0-70.0); Platelet Count 159 th/mm3 (150-450); Red Blood Count 2.69 mil/mm3 (4.50-5.90); Red Cell Distribution Width 13.3 % (11.6-17.2); White Blood Count 7.8 th/mm3 (4.0-11.0)
[2018-08-01 05:21] LABS: Mean Corpuscular HGB Conc 36.7 % (32.0-36.0)
[2018-08-01 05:32] LABS: Calcium 8.3 mg/dL (8.5-10.1); Potassium 4.4 meq/L (3.5-5.1)
[2018-08-01] MEDS: ceFAZolin 2 GM Premix Inj 2 GM/50 ML PIGGYBACK IV.SIG SCH ×2 (06:11→13:45)
[2018-08-01 07:23] LABS: Ovalocytes 1+
[2018-08-01] MEDS ORDERED: Influenza (Quadrivalent) Vaccine 0.5 ML Syringe IM ONE (09:00)
[2018-08-01] MEDS ORDERED: ceFAZolin 1 GM Premix Inj 2 GM/100 ML FROZ.PIGGY IV.SIG ONE (13:37)
--- NOTE | 2018-08-01 14:22 | P.PNNS ---
Subjective Interval history: doing well, c/o surgical pain - ROOF MECHANIC available controlled Physical Exam Vital signs: Vital Signs 07/31/18 17:30 07/31/18 17:45 07/31/18 18:00 Temperature 97.5 F L Pulse Rate 70 68 56 L Respiratory Rate 14 14 16 Blood Pressure 92/57 L 93/54 L 95/58 L Pulse Oximetry 99 96 96 07/31/18 18:15 07/31/18 18:30 07/31/18 19:00 Temperature Pulse Rate 66 64 64 Respiratory Rate 16 16 16 Blood Pressure 103/64 100/64 124/74 Pulse Oximetry 100 99 100 07/31/18 20:00 07/31/18 21:00 07/31/18 22:00 Temperature Pulse Rate 68 70 67 Respiratory Rate 16 16 12 Blood Pressure 118/68 110/62 110/60 Pulse Oximetry 99 100 97 07/31/18 23:00 08/01/18 00:00 08/01/18 01:00 Temperature Pulse Rate 77 79 79 Respiratory Rate 16 14 18 Blood Pressure 107/66 118/74 137/77 Pulse Oximetry 97 97 98 08/01/18 02:00 08/01/18 03:00 08/01/18 04:00 Temperature 98.4 F Pulse Rate 77 77 83 Respiratory Rate 16 16 20 Blood Pressure 130/74 141/72 H 136/78 Pulse Oximetry 95 96 98 08/01/18 05:00 08/01/18 06:00 08/01/18 08:00 Temperature 98.4 F 98.4 F 99.5 F Pulse Rate 92 H 90 98 H Respiratory Rate 20 20 18 Blood Pressure 137/76 136/80 142/80 H Pulse Oximetry 98 96 95 08/01/18 09:00 08/01/18 10:00 08/01/18 11:30 Temperature 100.0 F H Pulse Rate 102 H 106 H Respiratory Rate 18 18 Blood Pressure 137/83 140/83 Pulse Oximetry 98 96 Intake & Output 07/31/18 08/01/18 08/01/18 18:59 06:59 18:59 Intake Total 2300 / 2300 1290 / 1290 1050 / 1050 Output Total 1180 / 1180 1090 / 1090 30 / 30 Balance 1120 / 1120 200 / 200 1020 / 1020 Intake: IV 1050 / 1050 1050 / 1050 NS Inj 1,000 ML @ 100 mls/hr IV 1000 / 1000 1000 / 1000 .CONT .Q10H CHARIS Rx#:[id number] Ancef 2 GM Premix Inj 2 gm In 50 / 50 50 / 50 50 ml @ 100 mls/hr IV.SIG Q8H CHARIS Rx#:[id number] Oral 240 / 240 Anesthesia Amount 2200 / 2200 Other 100 / 100 Output: Estimated Blood Loss 450 / 450 Urine Amount (Catheter) 700 / 700 900 / 900 Indwelling Urethral Catheter 700 / 700 900 / 900 Wound Drainage 30 / 30 190 / 190 30 / 30 # 1 Back 30 / 30 190 / 190 30 / 30 Other: Other Intake Source Saline Solution Narrative: Awake in bed NAD moves major muscle groups of LE's well, limited due to pain FIGUEROA drain in place - Urinary Catheter Management Indwelling Urethral Catheter Cath placed during this visit: yes Reason for continuing: Hourly intake/output Insertion date: 07/31/18 Insertion time: 13:20 Assessment and Plan - Plan 47 y/o male with progressive low back pain s/p L4 laminectomy, open reduction of fracture, L2-L5 posterolateral fusion using autologous bone graft combined with demineralized bone matrix, L2-L5 segmental instrumented fixation using transpedicular screws and rods, microsurgical dissection for Pathological L4 burst fracture on 07/31/18. cont postoperative pain control with ROOF MECHANIC TLSO when out of bed cont FIGUEROA draining ok to transfer to 6N - dw PACU
[2018-08-01] MEDS: HYDROmorphone PCA Inj 6 MG/30 ML PCA.VIAL PCA PRN (14:30)
--- NOTE | 2018-08-01 16:33 | MB ---
cc: Ly Grijalva MD,Baldemar Nettles MD DATE: 08/01/2018 REFERRING PHYSICIAN: Baldemar Keene MD CHIEF COMPLAINT: Dr. Keene requests consultation for Mr. Ch regarding suspected multiple myeloma presenting with a pathologic L4 burst fracture. HISTORY OF PRESENT ILLNESS: Mr. Ch is a 47-year-old man with no significant past history. He denies any tobacco use. He had some back pain and arthritis of the left hip for about 1-2 months. He thought he pulled a muscle. He has had worsening symptoms and finally presented to the emergency room on 07/29/2018. He exacerbated his back pain after mowing grass. Imaging study in the emergency room included a lumbar spine x-ray that showed destructive process involving L4 vertebral body. MRI of the lumbar spine confirmed an abnormal L4 vertebral body with marrow edema. Marrow appears osteoporotic with endplate depression of L1 and L2. He was seen by Dr. Keene of Neurosurgery. He was [facility] to [facility]. After review of his imaging study, he is recommended to have an ORIF of L4 pathologic fracture with posterolateral fixation using transpedicular screws and rods. He had the surgery on 07/23/2018. He was finally transferred out of PACU to regular floor the following day. Hematology/Oncology is consulted for the pathologic fracture. Additional workup included CT scan of the chest that showed diffuse punctate lytic lesions throughout the osseous structure concerning for multiple myeloma. CT scan of the abdomen and pelvis shows the same lytic lesions diffusely throughout the osseous structures. The liver, spleen, pancreas, adrenal gland appear to be normal. Primary team initiated laboratory evaluation to rule out multiple myeloma. He presented with anemia, normocytic in nature. His white count is normal, hemoglobin is normal. He had mild renal insufficiency with a creatinine of 1.3, which argues for underlying plasma cell disorder. His serum protein electrophoresis was performed. No monoclonal protein band was identified. The immunofixation shows normal IgG but suppressed IgA and IgM. The kappa lambda ratio is significantly elevated. CHELSEY interpretation is still pending. REVIEW OF SYSTEMS: Mr. Ch denies any other medical problems. He was doing well. He has no headaches. No vision changes. He has no changes in bowel habits. He was quite regular before coming into the hospital. He denies any urinary complaints. He was active. He is a never smoker. He has no significant family history of cancer except for mother who had chronic hepatitis transmitted at and of hepatocellular cancer. PAST MEDICAL HISTORY: 1. L4 burst fracture. 2. Chronic renal insufficiency. 3. Hypertension. 4. Anemia. PAST SURGICAL HISTORY: Hernia repair, ORIF of L4. SOCIAL HISTORY: Denies any tobacco, alcohol or illicit drug use. 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 He is not . He has a significant other. His son is in the [employer]. FAMILY HISTORY: Mother of hepatocellular cancer. Father of heart disease. ALLERGIES: NO KNOWN DRUG ALLERGIES. MEDICATIONS: 1. Tylenol p.r.n. 2. Dilaudid p.r.n. 3. Lactulose. 4. Prinivil. 5. Ondansetron p.r.n. 6. Protonix. 7. Nakia-Colace p.r.n. PHYSICAL EXAMINATION: VITAL SIGNS: Temperature 99.8, heart rate 118, respiratory rate 18, blood pressure 155/85, saturation 95%. GENERAL: Mr. Ch is a well-developed, anxious-appearing young man. He looks comfortable lying flat on his back. He is quite anxious about the discussion of cancer. HEENT: His pupils are round, reactive to light and accommodation. Oropharynx is clear. NECK: Supple, no adenopathy. LUNGS: Clear anteriorly. CARDIOVASCULAR: Reveals tachycardia. GASTROINTESTINAL: Benign. No organomegaly. LOWER EXTREMITIES: No edema. Good pulses. Pneumatic compression device in place. LABORATORY DATA: Labs as described above. ASSESSMENT AND PLAN: Mr. Ch is a 47-year-old man with history of hypertension who presents with anemia, renal insufficiency and an L4 burst fracture. Further workup including CT scan of chest, abdomen and pelvis is negative except for multiple osseous lytic lesions. Discussed at length with Mr. Ch evaluation ongoing for plasma cell dyscrasia. His serum protein electrophoresis is negative for monoclonal protein. I suspect, however, he has a pathology associated with light chain disease. He has normal renal function at present. He has lytic lesions. He has no hypercalcemia. His L4 lesion has been corrected. He has no neurologic deficits. We discussed the pathology report is still pending. We will contact with pathology as to further evaluation. If plasma cell dyscrasia is confirmed, he will ultimately need a bone marrow biopsy as an aspirate for cytogenetics and flow cytometry will be needed. manager fixed income will be consulted. The patient names his significant other as his healthcare surrogate. A copious of his CT of chest, abdomen and pelvis will be provided at his request. His questions were answered to his satisfaction. MD CATHERINE Tirado/osmany , 03:47 PM , 04:04 PM
--- NOTE | 2018-08-01 19:23 | P.PNIM ---
Subjective Interval history: patient says he is feeling all right. He reports that pain is controlled. Denies any chest pain, shortness breath, nausea, vomiting. Physical Exam Vital signs: Vital Signs 07/31/18 20:00 07/31/18 21:00 07/31/18 22:00 Temperature Pulse Rate 68 70 67 Respiratory Rate 16 16 12 Blood Pressure 118/68 110/62 110/60 Pulse Oximetry 99 100 97 07/31/18 23:00 08/01/18 00:00 08/01/18 01:00 Temperature Pulse Rate 77 79 79 Respiratory Rate 16 14 18 Blood Pressure 107/66 118/74 137/77 Pulse Oximetry 97 97 98 08/01/18 02:00 08/01/18 03:00 08/01/18 04:00 Temperature 98.4 F Pulse Rate 77 77 83 Respiratory Rate 16 16 20 Blood Pressure 130/74 141/72 H 136/78 Pulse Oximetry 95 96 98 08/01/18 05:00 08/01/18 06:00 08/01/18 08:00 Temperature 98.4 F 98.4 F 99.5 F Pulse Rate 92 H 90 98 H Respiratory Rate 20 20 18 Blood Pressure 137/76 136/80 142/80 H Pulse Oximetry 98 96 95 08/01/18 09:00 08/01/18 10:00 08/01/18 11:00 Temperature Pulse Rate 102 H 106 H 102 H Respiratory Rate 18 18 18 Blood Pressure 137/83 140/83 135/76 Pulse Oximetry 98 96 97 08/01/18 11:30 08/01/18 12:00 08/01/18 13:00 Temperature 100.0 F H 99.8 F H Pulse Rate 118 H 118 H Respiratory Rate 18 18 Blood Pressure 152/80 H 155/85 H Pulse Oximetry 96 95 08/01/18 16:10 08/01/18 18:36 Temperature 98.6 F Pulse Rate 112 H Respiratory Rate 16 16 Blood Pressure 163/92 H Pulse Oximetry 98 Intake & Output 08/01/18 08/01/18 08/02/18 06:59 18:59 06:59 Intake Total 1290 / 1290 1881 / 1881 Output Total 1090 / 1090 2495 / 2495 Balance 200 / 200 -614 / -614 Intake: IV 1050 / 1050 1050 / 1050 NS Inj 1,000 ML @ 100 mls/hr IV 1000 / 1000 1000 / 1000 .CONT .Q10H CHARIS Rx#:[id number] Ancef 2 GM Premix Inj 2 gm In 50 / 50 50 / 50 50 ml @ 100 mls/hr IV.SIG Q8H CHARIS Rx#:[id number] Oral 240 / 240 Other 831 / 831 Output: Urine Amount (Catheter) 900 / 900 2400 / 2400 Indwelling Urethral Catheter 900 / 900 2400 / 2400 Wound Drainage 190 / 190 95 / 95 # 1 Back 190 / 190 95 / 95 Other: Other Intake Source Saline Solution Narrative: GENERAL: lying in bed. Appears comfortable. SKIN: Warm and dry. HEAD: Normocephalic. EYES: No scleral icterus. No injection or drainage. NECK: Supple, trachea midline. No JVD CARDIOVASCULAR: Regular rate and rhythm without murmurs, gallops, or rubs. RESPIRATORY: Breath sounds equal bilaterally. No accessory muscle use. GASTROINTESTINAL: Abdomen soft, non-tender, nondistended. MUSCULOSKELETAL: No cyanosis, or edema. - Urinary Catheter Management Indwelling Urethral Catheter Cath placed during this visit: yes Reason for continuing: Hourly intake/output Insertion date: 07/31/18 Insertion time: 13:20 Results - Labs CBC & Chem 7: 08/01/18 04:55 08/01/18 04:55 Laboratory Results - last 24 hr 07/31/18 08/01/18 08/01/18 14:26 04:55 04:55 WBC 7.8 D RBC 2.69 L Hgb 8.7 L Hct 23.8 L MCV 88.2 MCH 32.4 MCHC 36.7 H RDW 13.3 Plt Count 159 MPV 8.2 Prelim Diff (Auto) Slide review pending Neut % (Auto) 78.2 H Lymph % (Auto) 11.3 [place] % (Auto) 10.5 H Eos % (Auto) 0.0 Baso % (Auto) 0.0 Neut # (Auto) 6.1 Lymph # (Auto) 0.9 L [place] # (Auto) 0.8 Eos # (Auto) 0.0 Baso # (Auto) 0.0 WBC Differential . Diff Scan Auto diff confirmed Differential Comment . Ovalocytes 1+ H Sodium 139 Potassium 4.4 Chloride 104 Carbon Dioxide 24.0 Anion Gap 11 BUN 14 Creatinine 1.20 Estimated GFR 79 L Random Glucose 134 H Calcium 8.3 L Blood Type O Positive Antibody Screen Negative MTS Gel Crossmatch See Detail Assessment and Plan - Assessment (1) Bone marrow edema Code(s): D75.89 - Other specified diseases of blood and blood-forming organs Status: Acute (2) Back pain at L4-L5 level Code(s): M54.5 - Low back pain Status: Acute (3) Hypertension Code(s): I10 - Essential (primary) hypertension Status: Acute (4) Weakness Code(s): R53.1 - Weakness Status: Acute - Plan 47-year-old male with past medical history significant for hypertension who presented to the emergency department on 07/29 with complaints of worsening back pain over the past several weeks. //L4 destructive process - NeuroSx consulted, recommendations appreciated. Plans for L4 pathological fracture, with posterolateral fixation using transpedicular screws and rods today. Biopsys to be obtained. -TLSO brace for now - Myeloma workup PENDING: CHELSEY, SPEP/UPEP - CT abd/pelv with lytic lesions diffusely through the osseous structures concerning for multiple myeloma, noted pathologic fracture of L4, probable pathologic fractures of L1 and L2 as well. - CT chest with diffuse punctate lytic lesions throughout the osseous structures concerning for multiple myeloma, lungs are clear. - CEA for AM - Oncology consulted, appreciate assistance and recommendations. - PT evaluation. - continue pain control as ordered w/ supportive bowel regimen - Neuro checks - very low concern for TB as no risk factors ( [facility], travel, visitors, or contacts.). Lower concern for Pott's disease currently. Will continue workup and broaden differential as needed moving forward. = 08/01. Status post "L4 laminectomy, open reduction of fracture, L2-L5 posterolateral fusion using autologous bone graft combined with demineralized bone matrix, L2-L5 segmental instrumented fixation using transpedicular screws and rods, microsurgical dissection for Pathological L4 burst fracture on . " = Postoperative management and pain control as per surgical service. Appreciate assistance. Oncology following as well. Follow-up pathology results. Patient did have low-grade intraoperative temperatures, will monitor for signs of infection. //Anemia, mild Likely due to fluid resuscitation. No evidence of hypercalcemia. //HTN, chronic - continue lisinopril -BP mildly elevated, likely due to pain, continue to monitor and adjust medications accordingly //Abnormal creatinine - June creatinine 1.2 - Creatinine 1.42-->1.36, s/p IVF, continue to encourage oral hydration - Monitor BMP //DVT prophylaxissubcu Lovenox (hold due to surgical procedure), SCDs Discharge Planning: we'll need surgical and oncology clearance Remove Muñoz 08/02if okay with surgery.
[2018-08-02] MEDS: Sod Chloride 0.9% Inj 1,000 ML IV.CONT SCH ×2 (00:41→11:44)
[2018-08-02] MEDS: Acetaminophen 325 MG Tablet PO PRN (00:49)
[2018-08-02] MEDS: HYDROmorphone PCA Inj 6 MG/30 ML PCA.VIAL PCA PRN (04:05)
[2018-08-02 06:04] LABS: Baso % (Auto) 0.4 % (0.0-2.0); Eos % (Auto) 0.2 % (0.0-4.0); Hematocrit 21.1 % (39.0-51.0); Hemoglobin 7.7 gm/dL (13.0-17.0); Lymph # (Auto) 1.6 th/mm3 (1.0-4.8); Lymph % (Auto) 21.6 % (9.0-44.0); Mean Corpuscular Hemoglobin 32.8 pg (27.0-34.0); Mean Corpuscular Volume 89.3 fL (80.0-100.0); Mean Platelet Volume 8.5 fL (7.0-11.0); Mono % (Auto) 14.1 % (0.0-8.0); Neut # (Auto) 4.7 th/mm3 (1.8-7.7); Neut % (Auto) 63.7 % (16.0-70.0); Platelet Count 132 th/mm3 (150-450); Red Blood Count 2.36 mil/mm3 (4.50-5.90); Red Cell Distribution Width 13.3 % (11.6-17.2); White Blood Count 7.4 th/mm3 (4.0-11.0)
[2018-08-02 06:18] LABS: Mean Corpuscular HGB Conc 36.8 % (32.0-36.0)
[2018-08-02 06:28] LABS: Albumin 3.1 g/dL (3.4-5.0); Carbon Dioxide 28.1 meq/L (21.0-32.0); Magnesium 1.9 mg/dL (1.5-2.5); Phosphorus 2.7 mg/dL (2.5-4.9); Potassium 3.8 meq/L (3.5-5.1)
[2018-08-02 06:34] LABS: Total Protein 6.2 g/dL (6.4-8.2)
--- NOTE | 2018-08-02 09:51 | P.PN ---
Subjective Interval history: Follow-up visit for L4 destructive process with suspicions for multiple myeloma , anemia and hypertension. Patient is seen and examined resting in bed with at bedside. He reports his pain is well controlled but increases with movement, has been using his TILE SPRAYER pump. He denies any chills, cough, shortness of breath, nausea, vomiting, diarrhea, chest pain or dizziness. Physical Exam Vital signs: Vital Signs 08/01/18 10:00 08/01/18 11:00 08/01/18 11:30 Temperature 100.0 F H Pulse Rate 106 H 102 H Respiratory Rate 18 18 Blood Pressure 140/83 135/76 Pulse Oximetry 96 97 08/01/18 12:00 08/01/18 13:00 08/01/18 16:10 Temperature 99.8 F H 98.6 F Pulse Rate 118 H 118 H 112 H Respiratory Rate 18 18 16 Blood Pressure 152/80 H 155/85 H 163/92 H Pulse Oximetry 96 95 98 08/01/18 18:36 08/01/18 20:00 08/02/18 00:58 Temperature 100.3 F H 99.4 F Pulse Rate 115 H 109 H Respiratory Rate 16 18 16 Blood Pressure 157/84 H 148/79 H Pulse Oximetry 95 96 08/02/18 04:45 08/02/18 05:00 08/02/18 08:00 Temperature 98.9 F 98.1 F Pulse Rate 112 H 104 H Respiratory Rate 16 16 18 Blood Pressure 147/81 H 144/84 H Pulse Oximetry 94 L 95 Intake & Output 08/01/18 08/02/18 08/02/18 18:59 06:59 18:59 Intake Total 1881 / 1881 1820 / 1820 Output Total 2495 / 2495 1350 / 1350 Balance -614 / -614 470 / 470 Weight 89.7 kg Intake: IV 1050 / 1050 1000 / 1000 NS Inj 1,000 ML @ 100 mls/hr IV 1000 / 1000 1000 / 1000 .CONT .Q10H CHARIS Rx#:[id number] Ancef 2 GM Premix Inj 2 gm In 50 / 50 50 ml @ 100 mls/hr IV.SIG Q8H CHARIS Rx#:[id number] Oral 820 / 820 Other 831 / 831 Output: Urine Amount (Catheter) 2400 / 2400 1350 / 1350 Indwelling Urethral Catheter 2400 / 2400 1350 / 1350 Wound Drainage 95 / 95 # 1 Back / Other: Other Intake Source Saline Solution Date of Last Bowel Movement 07/31/18 # Bowel Movements 0 Narrative: GENERAL: Well-nourished, well-developed AA male in no acute distress. SKIN: Warm and dry. HEAD: Atraumatic. Normocephalic. EYES: Pupils equal and round. No scleral icterus. No injection or drainage. ENT: No nasal bleeding or discharge. Mucous membranes pink and moist. NECK: Trachea midline. CARDIOVASCULAR: Tachycardic with no murmurs. RESPIRATORY: No accessory muscle use. Clear to auscultation. Breath sounds equal bilaterally. GASTROINTESTINAL: Abdomen soft, non-tender, nondistended. + Bowel sounds MUSCULOSKELETAL: Extremities without clubbing, cyanosis, or edema. No obvious deformities. Bilateral lower extremities with +movement/sensation, capillary refill <3seconds. Back drain with sanguinous drainage noted. NEUROLOGICAL: Awake, alert, oriented x3. No obvious cranial nerve deficits. Motor grossly within normal limits. Five out of 5 muscle strength in the arms and legs. Normal speech. PSYCHIATRIC: Appropriate mood and affect; insight and judgment normal. - Urinary Catheter Management Indwelling Urethral Catheter Cath placed during this visit: yes Reason for continuing: Hourly intake/output Insertion date: 07/31/18 Insertion time: 13:20 Results - Labs CBC & Chem 7: 08/02/18 04:32 08/02/18 04:32 Laboratory Results - last 24 hr 08/02/18 08/02/18 04:32 04:32 WBC 7.4 RBC 2.36 L Hgb 7.7 L Hct 21.1 L MCV 89.3 MCH 32.8 MCHC 36.8 H RDW 13.3 Plt Count 132 L MPV 8.5 Prelim Diff (Auto) Slide review pending Neut % (Auto) 63.7 Lymph % (Auto) 21.6 [place] % (Auto) 14.1 H Eos % (Auto) 0.2 Baso % (Auto) 0.4 Neut # (Auto) 4.7 Lymph # (Auto) 1.6 [place] # (Auto) 1.0 H Eos # (Auto) 0.0 Baso # (Auto) 0.0 WBC Differential . Diff Scan Auto diff confirmed Differential Comment . Sodium 138 Potassium 3.8 Chloride 103 Carbon Dioxide 28.1 Anion Gap 7 BUN 16 Creatinine 1.22 Estimated GFR 78 L Random Glucose 125 H Calcium 8.0 L Phosphorus 2.7 Magnesium 1.9 Total Bilirubin 0.6 Direct Bilirubin 0.1 Indirect Bilirubin 0.5 AST 44 H ALT 19 Alkaline Phosphatase 52 Total Protein 6.2 L D Albumin 3.1 L Assessment and Plan - Assessment (1) Bone marrow edema Code(s): D75.89 - Other specified diseases of blood and blood-forming organs Status: Acute (2) Back pain at L4-L5 level Code(s): M54.5 - Low back pain Status: Acute (3) Hypertension Code(s): I10 - Essential (primary) hypertension Status: Acute (4) Weakness Code(s): R53.1 - Weakness Status: Acute - Plan 47-year-old male with past medical history significant for hypertension who presented to the emergency department on 07/29 with complaints of worsening back pain over the past several weeks. L4 destructive process Suspicion for multiple myeloma - NeuroSx consulted, recommendations appreciated. - 07/31 s/p L4 laminectomy, open reduction of burst fracture, L2-L5 posterolateral fusion using autologous bone graft combined with demineralized bone matrix, L2-L5 segmental instrumented fixation using transpedicular screws and rods, microsurgical dissection by Dr.Vinas PRATIK salas when OOB - CT abd/pelv with lytic lesions diffusely through the osseous structures concerning for multiple myeloma, noted pathologic fracture of L4, probable pathologic fractures of L1 and L2 as well. - CT chest with diffuse punctate lytic lesions throughout the osseous structures concerning for multiple myeloma, lungs are clear. - Oncology consulted, appreciate assistance and recommendations. - PT evaluation. - Continue pain control as ordered w/ supportive bowel regimen. - Neuro checks - very low concern for TB as no risk factors ( residential, travel, visitors, or contacts.). Lower concern for Pott's disease currently. -Low-grade temp overnight 100.3, continue to monitor closely for signs of infection. Symptomatic anemia, acute Tachycardia likely 2/2 anemia H&H on admission 11.2/33.7 -Drop in H&H 8.7-->7.7 Transfuse with 2 units of BRBC's - Recheck in the a.m. HTN, chronic - BP remains elevated despite lisinopril dose at midnight. -Start Norvasc 5 mg daily -New monitoring BP trend and adjusting accordingly Abnormal creatinine - June creatinine 1.2 - Creatinine 1.42-->1.36, s/p IVF, creatinine improved 1.22 - Monitor BMP, continue to encourage oral hydration. DVT prophylaxissubcu Lovenox (hold due to recent surgery) SCD's for now. Resume Lovenox as soon as cleared by neurosurgery. Discussed Condition With: Patient, , RN and
[2018-08-02] MEDS ORDERED: Sodium Chlor 0.9% Inj 250 ML IV.SIG SCH (10:00)
[2018-08-02] MEDS: Senna/Docusate Sodium 8.6/50 MG Tablet PO SCH ×2 (11:58→21:03)
--- NOTE | 2018-08-02 15:20 | P.PNNS ---
Subjective Interval history: pain controlled, being transfused PRBC Physical Exam Vital signs: Vital Signs 08/01/18 16:10 08/01/18 18:36 08/01/18 20:00 Temperature 98.6 F 100.3 F H Pulse Rate 112 H 115 H Respiratory Rate 16 16 18 Blood Pressure 163/92 H 157/84 H Pulse Oximetry 98 95 08/02/18 00:58 08/02/18 04:45 08/02/18 05:00 Temperature 99.4 F 98.9 F Pulse Rate 109 H 112 H Respiratory Rate 16 16 16 Blood Pressure 148/79 H 147/81 H Pulse Oximetry 96 94 L 08/02/18 08:00 08/02/18 11:34 08/02/18 11:52 Temperature 98.1 F 99.0 F 98.9 F Pulse Rate 104 H 105 H 103 H Respiratory Rate 18 18 Blood Pressure 144/84 H 142/85 H 146/88 H Pulse Oximetry 95 97 97 08/02/18 12:00 Temperature 99.7 F H Pulse Rate 105 H Respiratory Rate 18 Blood Pressure 164/102 H Pulse Oximetry 100 Intake & Output 08/01/18 08/02/18 08/02/18 18:59 06:59 18:59 Intake Total 1881 / 1881 1820 / 1820 1000 / 1000 Output Total 2495 / 2495 1350 / 1350 Balance -614 / -614 470 / 470 1000 / 1000 Weight 89.7 kg Intake: IV 1050 / 1050 1000 / 1000 1000 / 1000 NS Inj 1,000 ML @ 100 mls/hr IV 1000 / 1000 1000 / 1000 1000 / 1000 .CONT .Q10H CHARIS Rx#:[id number] Ancef 2 GM Premix Inj 2 gm In 50 / 50 50 ml @ 100 mls/hr IV.SIG Q8H CHARIS Rx#:[id number] Oral 820 / 820 Other 831 / 831 Intake (Blood Product) Amt 0 / 0 Rbc As-3 Leukoreduced Unit 0 / 0 [id number] Output: Urine Amount (Catheter) 2400 / 2400 1350 / 1350 Indwelling Urethral Catheter 2400 / 2400 1350 / 1350 Wound Drainage 95 / 95 # 1 Back 95 / 95 Other: Other Intake Source Saline Solution Date of Last Bowel Movement 07/31/18 # Bowel Movements 0 Narrative: In bed NAD PRBCs being transfused - Urinary Catheter Management Indwelling Urethral Catheter Cath placed during this visit: yes Reason for continuing: Hourly intake/output Insertion date: 07/31/18 Insertion time: 13:20 Assessment and Plan - Plan 47 y/o male with progressive low back pain MRI L spine showed Abnormal L4 vertebral body with subtle marrow edema and L2 and L4 without obvious enhancement. This has the appearance of a long-standing process.Marrow appears osteoporotic with minimal endplate depression of L1 and L2.. Abdomen/Pelvis CT 07/30/18 00:00 CONCLUSION: 1. There are lytic lesions diffusely throughout the osseous structures concerning for multiple myeloma. 2. Pathologic fracture of L4. 3. Probable pathologic fractures of L1 and L2 as well. Chest CT 07/30/18 00:00 CONCLUSION: 1. Diffuse, punctate lytic lesions throughout the osseous structures this is concerning for multiple myeloma. 2. The lungs are clear. s/p L4 laminectomy, open reduction of fracture, L2-L5 posterolateral fusion using autologous bone graft combined with demineralized bone matrix, L2-L5 segmental instrumented fixation using transpedicular screws and rods, microsurgical dissection for Pathological L4 burst fracture on 07/31/18. cont postoperative pain control with GLOBAL MARKETING MANAGER PT, mobilize, TLSO when out of bed cont FIGUEROA draining today, f/u output SCDs and TEDs for dvt prophylaxis f/u biopsy results oncology consult
[2018-08-02] MEDS: amLODIPine 5 MG Tablet PO SCH (15:56)
--- NOTE | 2018-08-02 16:00 | P.PNONC ---
Subjective Interval history: Discussed with patient the pathology report. Discussed with pathologist. Multiple myeloma suspected. Light chain disease. There is questionable IgG monoclonal protein also identified. The immunofixation will likely need to be repeated. Offers no complaints. Pain is under control. Discussed with primary team to initiate pharmacologic DVT prophylaxis when okay with neurosurgery. Objective Vital Signs/Intake & Output: Vital Signs 08/01/18 16:10 08/01/18 18:36 08/01/18 20:00 Temperature 98.6 F 100.3 F H Pulse Rate 112 H 115 H Respiratory Rate 16 16 18 Blood Pressure 163/92 H 157/84 H Pulse Oximetry 98 95 08/02/18 00:58 08/02/18 04:45 08/02/18 05:00 Temperature 99.4 F 98.9 F Pulse Rate 109 H 112 H Respiratory Rate 16 16 16 Blood Pressure 148/79 H 147/81 H Pulse Oximetry 96 94 L 08/02/18 08:00 08/02/18 11:34 08/02/18 11:52 Temperature 98.1 F 99.0 F 98.9 F Pulse Rate 104 H 105 H 103 H Respiratory Rate 18 18 Blood Pressure 144/84 H 142/85 H 146/88 H Pulse Oximetry 95 97 97 08/02/18 12:00 08/02/18 15:39 Temperature 99.7 F H 98.9 F Pulse Rate 105 H 80 Respiratory Rate 18 18 Blood Pressure 164/102 H 150/97 H Pulse Oximetry 100 Intake & Output 08/01/18 08/02/18 08/02/18 18:59 06:59 18:59 Intake Total 1881 / 1881 1820 / 1820 1400 / 1400 Output Total 2495 / 2495 1350 / 1350 Balance -614 / -614 470 / 470 1400 / 1400 Weight 89.7 kg Intake: IV 1050 / 1050 1000 / 1000 1000 / 1000 NS Inj 1,000 ML @ 100 mls/hr IV 1000 / 1000 1000 / 1000 1000 / 1000 .CONT .Q10H CHARIS Rx#:[id number] Ancef 2 GM Premix Inj 2 gm In 50 / 50 50 ml @ 100 mls/hr IV.SIG Q8H CHARIS Rx#:[id number] Oral 820 / 820 Other 831 / 831 Intake (Blood Product) Amt 400 / 400 Rbc As-3 Leukoreduced Unit 0 / 0 [id number] Rbc As-3 Leukoreduced Unit 400 / 400 [id number] Output: Urine Amount (Catheter) 2400 / 2400 1350 / 1350 Indwelling Urethral Catheter 2400 / 2400 1350 / 1350 Wound Drainage # 1 Back Other: Other Intake Source Saline Solution Date of Last Bowel Movement 07/31/18 # Bowel Movements 0 Result Diagrams: 08/02/18 04:32 08/02/18 04:32 Laboratory Results: Laboratory Results - last 24 hr 07/30/18 07/31/18 08/02/18 08:05 14:26 04:32 WBC 7.4 RBC 2.36 L Hgb 7.7 L Hct 21.1 L MCV 89.3 MCH 32.8 MCHC 36.8 H RDW 13.3 Plt Count 132 L MPV 8.5 Prelim Diff (Auto) Slide review pending Neut % (Auto) 63.7 Lymph % (Auto) 21.6 [place] % (Auto) 14.1 H Eos % (Auto) 0.2 Baso % (Auto) 0.4 Neut # (Auto) 4.7 Lymph # (Auto) 1.6 [place] # (Auto) 1.0 H Eos # (Auto) 0.0 Baso # (Auto) 0.0 WBC Differential . Diff Scan Auto diff confirmed Differential Comment . Sodium Potassium Chloride Carbon Dioxide Anion Gap BUN Creatinine Estimated GFR Random Glucose Calcium Phosphorus Magnesium Total Bilirubin Direct Bilirubin Indirect Bilirubin AST ALT Alkaline Phosphatase Total Protein Albumin CHELSEY Interpretation Blood Type O Positive Antibody Screen Negative MTS Gel Crossmatch See Detail Bld Prod Order Comment 08/02/18 08/02/18 04:32 09:50 WBC RBC Hgb Hct MCV MCH MCHC RDW Plt Count MPV Prelim Diff (Auto) Neut % (Auto) Lymph % (Auto) [place] % (Auto) Eos % (Auto) Baso % (Auto) Neut # (Auto) Lymph # (Auto) [place] # (Auto) Eos # (Auto) Baso # (Auto) WBC Differential Diff Scan Differential Comment Sodium 138 Potassium 3.8 Chloride 103 Carbon Dioxide 28.1 Anion Gap 7 BUN 16 Creatinine 1.22 Estimated GFR 78 L Random Glucose 125 H Calcium 8.0 L Phosphorus 2.7 Magnesium 1.9 Total Bilirubin 0.6 Direct Bilirubin 0.1 Indirect Bilirubin 0.5 AST 44 H ALT 19 Alkaline Phosphatase 52 Total Protein 6.2 L D Albumin 3.1 L CHELSEY Interpretation Blood Type Antibody Screen MTS Gel Crossmatch See Detail Bld Prod Order Comment Cancelled Medications: Active Medications Generic Name Dose Route Start Last Admin Trade Name Davidq PRN Reason Stop Dose Admin Acetaminophen 650 mg 07/29/18 21:44 08/02/18 00:49 Tylenol PO 650 mg Q4H PRN Administration Temp > 100.4 Enoxaparin Sodium 40 mg 07/31/18 09:00 07/31/18 09:00 Lovenox Inj SQ Not Given DAILY CHARIS Sodium Chloride 1,000 mls @ 100 mls/hr 07/31/18 17:30 08/02/18 11:44 Ns Inj IV.CONT 25 mls/hr .Q10H CHARIS Administration Hydromorphone/Sodium Chloride 6 mg in 30 mls @ 0 mls/hr 07/31/18 17:24 04:05 Dilaudid Melting Supervisor Inj TIMBER KILLER 0 mls/hr UNSCH PRN Administration prn pain 0 MG/HR Lisinopril 2.5 mg 07/29/18 22:00 07/30/18 00:06 Prinivil PO 2.5 mg DAILY PRN Administration HYPERTENSION Ondansetron HCl 4 mg 07/29/18 21:44 07/31/18 20:33 Zofran Inj IV.PUSH 4 mg Q6H PRN Administration NAUSEA OR VOMITING Pantoprazole Sodium 40 mg 08/01/18 09:00 08/02/18 09:47 Protonix PO 40 mg DAILY CHARIS Administration Senna/Docusate Sodium 1 tab 07/31/18 21:00 08/02/18 11:58 Nakia-Colace PO 1 tab BID CHARIS Administration Objective Remarks: GENERAL: Well-nourished, well-developed patient. SKIN: Warm and dry. HEAD: Normocephalic. EYES: No scleral icterus. No injection or drainage. NECK: Supple, trachea midline. No JVD or lymphadenopathy. LYMPHATIC: No adenopathy. CARDIOVASCULAR: Regular rate and rhythm without murmurs. RESPIRATORY: Breath sounds equal bilaterally. No accessory muscle use. GASTROINTESTINAL: Abdomen soft, non-tender, nondistended. EXTREMITIES: No cyanosis, or edema. MUSCULOSKELETAL: Adequate muscle tone. NEUROLOGICAL: No obvious focal deficit. Awake, alert, and oriented x3. PSYCHIATRIC: Appropriate mood and affect; insight and judgment normal. Assessment/Plan (1) Multiple myeloma Code(s): C90.00 - Multiple myeloma not having achieved remission Status: Acute - Plan 47-year-old man with no significant past history. He presents with a burst fracture at L4. Is found to have multiple lytic lesions. The serum protein electrophoresis is negative. Free light chain analysis to show the presence of block kappa light chain suspicious for light chain disease. We discussed at length the significance of diagnosis of multiple myeloma. This is a metastatic disease from diagnosis. It involves multiple bones sites. No extranodal site of disease identified so far. No plasmacytoma. He will need treatment in order to control his disease. So far multiple myeloma although treatable is incurable. We discussed staging with bone marrow biopsy evaluation possibly on Sunday. Supportive treatment for now for the anemia. Bisphosphonate therapy was placed on hold in light of his recent surgery. He will need bisphosphonate as adjunctive therapy for his multiple myeloma. We discussed briefly in general terms treatment for multiple myeloma to include triple combination Revlimid, Velcade, Decadron. Given his young age and previous excellent performance status he would autologous stem cell transplant. His questions were answered to his satisfaction. (1) Multiple myeloma Qualifiers: Multiple myeloma remission status: not in remission Qualified Code(s): C90.00 - Multiple myeloma not having achieved remission
[2018-08-03 05:00] LABS: Baso % (Auto) 0.3 % (0.0-2.0); Eos % (Auto) 0.6 % (0.0-4.0); Hematocrit 27.4 % (39.0-51.0); Hemoglobin 9.9 gm/dL (13.0-17.0); Lymph # (Auto) 1.9 th/mm3 (1.0-4.8); Lymph % (Auto) 23.2 % (9.0-44.0); Mean Corpuscular Hemoglobin 32.1 pg (27.0-34.0); Mean Corpuscular Volume 88.5 fL (80.0-100.0); Mean Platelet Volume 7.9 fL (7.0-11.0); Mono # (Auto) 1.1 th/mm3 (0.0-0.9); Mono % (Auto) 13.9 % (0.0-8.0); Platelet Count 112 th/mm3 (150-450); Red Blood Count 3.09 mil/mm3 (4.50-5.90); Red Cell Distribution Width 13.2 % (11.6-17.2)
[2018-08-03 05:01] LABS: Mean Corpuscular HGB Conc 36.3 % (32.0-36.0)
[2018-08-03 05:23] LABS: Ovalocytes 1+; Platelet Morphology Normal (Normal)
[2018-08-03] MEDS: Senna/Docusate Sodium 8.6/50 MG Tablet PO SCH ×2 (09:11→22:01)
[2018-08-03] MEDS: amLODIPine 5 MG Tablet PO SCH (09:11)
--- NOTE | 2018-08-03 09:48 | XR ---
EXAM DATE: 08/03/2018 9:29 AM EST AGE/SEX: 47 years / Male INDICATIONS: Pneumonia. CLINICAL DATA: This is the patient's subsequent encounter. Patient reports that signs and symptoms h ave been present for 1 day and indicates a pain score of 0/10. MEDICAL/SURGICAL HISTORY: . Heart murmur. Inguinal hernia repair. . Lumbar fusion. COMPARISON: [facility], CHEST 1V SINGLE AP, 07/01/2018. . FINDINGS: A single AP view of the chest demonstrates the lungs to be symmetrically aerated without evidence of mass, infiltrate or effusion. The heart size is enlarged.. Osseous structures are intact and stable . No new or significant changes.. CONCLUSION: No acute intrathoracic disease. Stable examination. Electronically signed by: Salas Mcgraw MD 08/03/2018 9:47 AM EST
--- NOTE | 2018-08-03 09:58 | P.PN ---
Subjective Interval history: Follow-up visit for L4 destructive process with suspicion for multiple myeloma, anemia and hypertension. Patient seen and examined resting comfortably in bed in no acute distress. He reports his pain is well controlled with the use of COMMUNITY NUTRITION EDUCATOR pump, pain with turning and movement. He is waiting for physical therapy to assist him out of bed. Low-grade temp overnight noted. Patient denies any shortness of breath, cough, dysuria, nausea, vomiting or diarrhea. Physical Exam Vital signs: Vital Signs 08/02/18 11:34 08/02/18 11:52 08/02/18 12:00 Temperature 99.0 F 98.9 F 99.7 F H Pulse Rate 105 H 103 H 105 H Respiratory Rate 18 18 Blood Pressure 142/85 H 146/88 H 164/102 H Pulse Oximetry 97 97 100 08/02/18 15:39 08/02/18 18:37 08/03/18 01:00 Temperature 98.9 F 99 F Pulse Rate 80 104 H Respiratory Rate 18 16 18 Blood Pressure 150/97 H 162/99 H Pulse Oximetry 96 08/03/18 01:05 08/03/18 03:25 08/03/18 08:00 Temperature 99 F 99.4 F 98.1 F Pulse Rate 108 H 99 H 93 H Respiratory Rate 16 17 18 Blood Pressure 159/97 H 154/94 H 146/86 H Pulse Oximetry 95 96 95 Intake & Output 08/02/18 08/03/18 08/03/18 18:59 06:59 18:59 Intake Total 2900 / 2900 1190 / 1190 Output Total 725 / 725 Balance 2900 / 2900 465 / 465 Weight 88.8 kg Intake: IV 1000 / 1000 NS Inj 1,000 ML @ 100 mls/hr IV 1000 / 1000 .CONT .Q10H CHARIS Rx#:[id number] Oral 1500 / 1500 1190 / 1190 Intake (Blood Product) Amt 400 / 400 0 / 0 Rbc As-3 Leukoreduced Unit 0 / 0 0 / 0 [id number] Rbc As-3 Leukoreduced Unit 400 / 400 [id number] Output: Urine 700 / 700 Wound Drainage # 1 Back Other: # Voids 1,450 4 Date of Last Bowel Movement 07/31/18 # Bowel Movements 0 Narrative: GENERAL: Well-nourished, well-developed AA male in no acute distress. SKIN: Warm and dry. HEAD: Atraumatic. Normocephalic. EYES: Pupils equal and round. No scleral icterus. No injection or drainage. ENT: No nasal bleeding or discharge. Mucous membranes pink and moist. NECK: Trachea midline. CARDIOVASCULAR: Regular rate and rhythm with no murmurs. RESPIRATORY: No accessory muscle use. Clear to auscultation. Breath sounds equal bilaterally. GASTROINTESTINAL: Abdomen soft, non-tender, nondistended. + Bowel sounds MUSCULOSKELETAL: Extremities without clubbing, cyanosis, or edema. No obvious deformities. Bilateral lower extremities with +movement/sensation, capillary refill <3seconds. Back drain with sanguinous drainage noted. Dressing with scant amount of sanguinous drainage noted. NEUROLOGICAL: Awake, alert, oriented x3. No obvious cranial nerve deficits. Motor grossly within normal limits. Normal speech. PSYCHIATRIC: Appropriate mood and affect; insight and judgment normal. - Urinary Catheter Management Indwelling Urethral Catheter Cath placed during this visit: yes, but has since been removed by the nurse Reason for continuing: Hourly intake/output Insertion date: 07/31/18 Insertion time: 13:20 Removal date: 08/02/18 Removal time: 09:00 Results - Labs CBC & Chem 7: 08/03/18 04:27 08/02/18 04:32 Laboratory Results - last 24 hr 07/30/18 07/31/18 08/02/18 08:05 14:26 09:50 WBC RBC Hgb Hct MCV MCH MCHC RDW Plt Count MPV Prelim Diff (Auto) Neut % (Auto) Lymph % (Auto) [place] % (Auto) Eos % (Auto) Baso % (Auto) Neut # (Auto) Lymph # (Auto) [place] # (Auto) Eos # (Auto) Baso # (Auto) WBC Differential Diff Scan Differential Comment Platelet Estimate Platelet Morphology Ovalocytes CHELSEY Interpretation Blood Type O Positive Antibody Screen Negative MTS Gel Crossmatch See Detail See Detail Bld Prod Order Comment Cancelled 08/03/18 04:27 WBC 8.0 RBC 3.09 L Hgb 9.9 L D Hct 27.4 L MCV 88.5 MCH 32.1 MCHC 36.3 H RDW 13.2 Plt Count 112 L MPV 7.9 Prelim Diff (Auto) Slide review pending Neut % (Auto) 62.0 Lymph % (Auto) 23.2 [place] % (Auto) 13.9 H Eos % (Auto) 0.6 Baso % (Auto) 0.3 Neut # (Auto) 5.0 Lymph # (Auto) 1.9 [place] # (Auto) 1.1 H Eos # (Auto) 0.0 Baso # (Auto) 0.0 WBC Differential . Diff Scan Auto diff confirmed Differential Comment . Platelet Estimate Low L Platelet Morphology Normal Ovalocytes 1+ H CHELSEY Interpretation Blood Type Antibody Screen MTS Gel Crossmatch Bld Prod Order Comment - Imaging Impressions Chest X-Ray 08/03/18 00:00 CONCLUSION: No acute intrathoracic disease. Stable examination. Assessment and Plan - Assessment (1) Bone marrow edema Code(s): D75.89 - Other specified diseases of blood and blood-forming organs Status: Acute (2) Back pain at L4-L5 level Code(s): M54.5 - Low back pain Status: Acute (3) Hypertension Code(s): I10 - Essential (primary) hypertension Status: Acute (4) Weakness Code(s): R53.1 - Weakness Status: Acute - Plan 47-year-old male with past medical history significant for hypertension who presented to the emergency department on 07/29 with complaints of worsening back pain over the past several weeks. L4 destructive process Suspicion for multiple myeloma - NeuroSx consulted, recommendations appreciated. - 07/31 s/p L4 laminectomy, open reduction of burst fracture, L2-L5 posterolateral fusion using autologous bone graft combined with demineralized bone matrix, L2-L5 segmental instrumented fixation using transpedicular screws and rods, microsurgical dissection by Dr.Vinas CONNER josue when OOB - CT abd/pelv with lytic lesions diffusely through the osseous structures concerning for multiple myeloma, noted pathologic fracture of L4, probable pathologic fractures of L1 and L2 as well. - CT chest with diffuse punctate lytic lesions throughout the osseous structures concerning for multiple myeloma, lungs are clear. - Oncology consulted, appreciate assistance and recommendations. - PT evaluation. - Continue pain control as ordered w/ supportive bowel regimen. - Neuro checks - very low concern for TB as no risk factors ( longterm, travel, visitors, or contacts.). Lower concern for Pott's disease currently. -Low-grade temp overnight 99.4, x-ray negative, repeat UA negative, continue to monitor closely for signs of infection. Symptomatic anemia, acute Tachycardia likely 2/2 anemia H&H on admission 11.2/33.7 -Drop in H&H 8.7-->7.7 s/p 2 units of BRBC's 08/02 -H&H this morning 9.9/27.4 HTN, chronic - BP remains elevated despite Norvasc, increase dose to 10 mg daily. -Continue monitoring BP and adjust medications accordingly. Abnormal creatinine - June creatinine 1.2 - Creatinine 1.42-->1.36, s/p IVF, creatinine improved 1.22 - Monitor BMP, continue to encourage oral hydration. DVT prophylaxisDiscussed with (neurosurgery covering for the weekend) back drain to be removed today, resume Lovenox tomorrow. Discussed Condition With: Patient, RN, Dr. Jacobs
--- NOTE | 2018-08-03 11:56 | P.PNNS ---
Subjective Interval history: Doing well, weaning down RADIO ARTIST Physical Exam Vital signs: Vital Signs 08/02/18 12:00 08/02/18 15:39 08/02/18 18:37 Temperature 99.7 F H 98.9 F 99 F Pulse Rate 105 H 80 104 H Respiratory Rate 18 18 16 Blood Pressure 164/102 H 150/97 H 162/99 H Pulse Oximetry 100 96 08/03/18 01:00 08/03/18 01:05 08/03/18 03:25 Temperature 99 F 99.4 F Pulse Rate 108 H 99 H Respiratory Rate 18 16 17 Blood Pressure 159/97 H 154/94 H Pulse Oximetry 95 96 08/03/18 08:00 Temperature 98.1 F Pulse Rate 93 H Respiratory Rate 18 Blood Pressure 146/86 H Pulse Oximetry 95 Intake & Output 08/02/18 08/03/18 08/03/18 18:59 06:59 18:59 Intake Total 2900 / 2900 1190 / 1190 Output Total 725 / 725 Balance 2900 / 2900 465 / 465 Weight 88.8 kg Intake: IV 1000 / 1000 NS Inj 1,000 ML @ 100 mls/hr IV 1000 / 1000 .CONT .Q10H CHARIS Rx#:[id number] Oral 1500 / 1500 1190 / 1190 Intake (Blood Product) Amt 400 / 400 0 / 0 Rbc As-3 Leukoreduced Unit 0 / 0 0 / 0 [id number] Rbc As-3 Leukoreduced Unit 400 / 400 [id number] Output: Urine 700 / 700 Wound Drainage / # 1 Back Other: # Voids 1,450 4 Date of Last Bowel Movement 07/31/18 # Bowel Movements 0 Narrative: Doing well, FIGUEROA drain with minimal output Incision c/d/i Full strength UE/LE - Urinary Catheter Management Indwelling Urethral Catheter Cath placed during this visit: yes, but has since been removed by the nurse Reason for continuing: Hourly intake/output Insertion date: 07/31/18 Insertion time: 13:20 Removal date: 08/02/18 Removal time: 09:00 Assessment and Plan - Plan 47 y/o male with progressive low back pain MRI L spine showed Abnormal L4 vertebral body with subtle marrow edema and L2 and L4 without obvious enhancement. This has the appearance of a long-standing process.Marrow appears osteoporotic with minimal endplate depression of L1 and L2.. Abdomen/Pelvis CT 07/30/18 00:00 CONCLUSION: 1. There are lytic lesions diffusely throughout the osseous structures concerning for multiple myeloma. 2. Pathologic fracture of L4. 3. Probable pathologic fractures of L1 and L2 as well. Chest CT 07/30/18 00:00 CONCLUSION: 1. Diffuse, punctate lytic lesions throughout the osseous structures this is concerning for multiple myeloma. 2. The lungs are clear. s/p L4 laminectomy, open reduction of fracture, L2-L5 posterolateral fusion using autologous bone graft combined with demineralized bone matrix, L2-L5 segmental instrumented fixation using transpedicular screws and rods, microsurgical dissection for Pathological L4 burst fracture on 07/31/18. cont postoperative pain control with RADIO ARTIST PT, mobilize, TLSO when out of bed cont FIGUEROA draining today, f/u output SCDs and TEDs for dvt prophylaxis f/u biopsy results oncology consult 08/03/ D/c FIGUEROA drain May start Lovenox tomorrow AM wean RADIO ARTIST, transition to orals
[2018-08-03 16:38] LABS: Bilirubin,Urine Negative (Negative); Clarity,Urine Clear (Clear); Color,Urine Straw (Yellw/Straw); Glucose,Urine (UA) Negative (Negative); Leukocyte Esterase,Urine Negative (Negative); Mucus,Urine Few /lpf (Occasional); Nitrite,Urine Negative (Negative)
[2018-08-03] MEDS ORDERED: Sodium Chloride 0.9% 2 ML Flush PRN IV.FLUSH (22:55)
[2018-08-04] MEDS: Senna/Docusate Sodium 8.6/50 MG Tablet PO SCH ×3 (08:21→20:58)
[2018-08-04] MEDS: amLODIPine 10 MG Tablet PO SCH (08:21)
[2018-08-04] MEDS: Sodium Chloride 0.9% 2 ML Flush BID IV.FLUSH SCH ×2 (11:17→21:01)
[2018-08-04] MEDS: Enoxaparin Inj 40 MG/0.4 ML Syringe SQ SCH (11:59)
--- NOTE | 2018-08-04 12:14 | P.PNNS ---
Subjective Interval history: Doing well, TUYERE FITTER dc'd. Physical Exam Vital signs: Vital Signs 08/03/18 16:00 08/03/18 20:05 08/04/18 00:00 Temperature 98.7 F 99.9 F H 98.3 F Pulse Rate 92 H 98 H 88 Respiratory Rate 18 18 Blood Pressure 150/84 H 155/87 H 160/90 H Pulse Oximetry 97 97 95 08/04/18 05:10 08/04/18 06:48 08/04/18 08:00 Temperature 98.6 F 98.0 F Pulse Rate 87 88 Respiratory Rate 18 18 Blood Pressure 149/88 H 145/82 H Pulse Oximetry 96 94 L Intake & Output 08/03/18 08/04/18 08/04/18 18:59 06:59 18:59 Intake Total 800 / 800 960 / 960 Output Total 900 / 900 Balance -100 / -100 960 / 960 Weight 84.4 kg Intake: Oral 800 / 800 960 / 960 Output: Urine 900 / 900 Other: # Voids 5 Date of Last Bowel Movement 07/31/18 08/04/18 08/03/18 # Bowel Movements 1 Narrative: Dressing c/d/i Full strength UE/LE - Urinary Catheter Management Indwelling Urethral Catheter Cath placed during this visit: yes, but has since been removed by the nurse Reason for continuing: Hourly intake/output Insertion date: 07/31/18 Insertion time: 13:20 Removal date: 08/02/18 Removal time: 09:00 Assessment and Plan - Plan 47 y/o male with progressive low back pain MRI L spine showed Abnormal L4 vertebral body with subtle marrow edema and L2 and L4 without obvious enhancement. This has the appearance of a long-standing process.Marrow appears osteoporotic with minimal endplate depression of L1 and L2.. Abdomen/Pelvis CT 07/30/18 00:00 CONCLUSION: 1. There are lytic lesions diffusely throughout the osseous structures concerning for multiple myeloma. 2. Pathologic fracture of L4. 3. Probable pathologic fractures of L1 and L2 as well. Chest CT 07/30/18 00:00 CONCLUSION: 1. Diffuse, punctate lytic lesions throughout the osseous structures this is concerning for multiple myeloma. 2. The lungs are clear. s/p L4 laminectomy, open reduction of fracture, L2-L5 posterolateral fusion using autologous bone graft combined with demineralized bone matrix, L2-L5 segmental instrumented fixation using transpedicular screws and rods, microsurgical dissection for Pathological L4 burst fracture on 07/31/18. cont postoperative pain control with TUYERE FITTER PT, mobilize, TLSO when out of bed cont FIGUEROA draining today, f/u output SCDs and TEDs for dvt prophylaxis f/u biopsy results oncology consult 08/03/ D/c FIGUEROA drain May start Lovenox tomorrow AM wean TUYERE FITTER, transition to orals 08/04 May start Lovenox Continue oral pain meds Continue PT w/ brace when OOB
--- NOTE | 2018-08-04 13:36 | P.PN ---
Subjective Interval history: Follow-up visit for L4 destructive process with suspicion for multiple myeloma and hypertension. Patient is seen and examined resting comfortably in bed with at bedside. He denies any nausea, vomiting, diarrhea, cough, shortness of breath or chest pain. He reports his back pain is well controlled, now off of SYSTEMS SUPPORT ENGINEER pump. Ongoing low-grade temps, no dysuria, cough. Drain removed yesterday , patient was able to get up to the chair yesterday with the help of physical therapy. Physical Exam Vital signs: Vital Signs 08/03/18 16:00 08/03/18 20:05 08/04/18 00:00 Temperature 98.7 F 99.9 F H 98.3 F Pulse Rate 92 H 98 H 88 Respiratory Rate 18 Blood Pressure 150/84 H 155/87 H 160/90 H Pulse Oximetry 97 97 95 08/04/18 05:10 08/04/18 06:48 08/04/18 08:00 Temperature 98.6 F 98.0 F Pulse Rate 87 88 Respiratory Rate 18 Blood Pressure 149/88 H 145/82 H Pulse Oximetry 96 94 L Intake & Output 08/03/18 08/04/18 08/04/18 18:59 06:59 18:59 Intake Total 800 / 800 960 / 960 Output Total 900 / 900 Balance -100 / -100 960 / 960 Weight 84.4 kg Intake: Oral 800 / 800 960 / 960 Output: Urine 900 / 900 Other: # Voids 5 Date of Last Bowel Movement 07/31/18 08/04/18 08/03/18 # Bowel Movements 1 Narrative: GENERAL: Well-nourished, well-developed AA male in no acute distress. SKIN: Warm and dry. HEAD: Atraumatic. Normocephalic. EYES: No scleral icterus. No injection or drainage. ENT: No nasal bleeding or discharge. Mucous membranes pink and moist. NECK: Trachea midline. CARDIOVASCULAR: Regular rate and rhythm with 2/6 murmur. RESPIRATORY: No accessory muscle use. Clear to auscultation. Breath sounds equal bilaterally. GASTROINTESTINAL: Abdomen soft, non-tender, nondistended. + Bowel sounds MUSCULOSKELETAL: Extremities without clubbing, cyanosis, or edema. No obvious deformities. Bilateral lower extremities with +movement/sensation, capillary refill <3seconds. Lower back dressing with 2 small serosanguineous drainage thakkar noted. NEUROLOGICAL: Awake, alert, oriented x3. No obvious cranial nerve deficits. Motor grossly within normal limits. Normal speech. PSYCHIATRIC: Appropriate mood and affect; insight and judgment normal. - Urinary Catheter Management Indwelling Urethral Catheter Cath placed during this visit: yes, but has since been removed by the nurse Reason for continuing: Hourly intake/output Insertion date: 07/31/18 Insertion time: 13:20 Removal date: 08/02/18 Removal time: 09:00 Results - Labs CBC & Chem 7: 08/03/18 04:27 08/02/18 04:32 Laboratory Results - last 24 hr 08/03/18 16:10 Urine Color Straw Urine Clarity Clear Urine pH 7.0 Ur Specific [place] 1.010 Urine Protein 100 H Urine Glucose (UA) Negative Urine Ketones Negative Urine Occult Blood Small H Urine Nitrate Negative Urine Bilirubin Negative Urine Urobilinogen Less than 2 Ur Leukocyte Esterase Negative Urine WBC 1 Urine Mucus Few H Micro UA Comment Culture not ind Ur Microscopic Review Not Reportable Urine Culture Comments Culture not ind Assessment and Plan - Assessment (1) Bone marrow edema Code(s): D75.89 - Other specified diseases of blood and blood-forming organs Status: Acute (2) Back pain at L4-L5 level Code(s): M54.5 - Low back pain Status: Acute (3) Hypertension Code(s): I10 - Essential (primary) hypertension Status: Acute (4) Weakness Code(s): R53.1 - Weakness Status: Acute - Plan 47-year-old male with past medical history significant for hypertension who presented to the emergency department on 07/29 with complaints of worsening back pain over the past several weeks. L4 destructive process Suspicion for multiple myeloma - NeuroSx consulted, recommendations appreciated. - 07/31 s/p L4 laminectomy, open reduction of burst fracture, L2-L5 posterolateral fusion using autologous bone graft combined with demineralized bone matrix, L2-L5 segmental instrumented fixation using transpedicular screws and rods, microsurgical dissection by Dr.Vinas PRATIK salas when OOB - CT abd/pelv with lytic lesions diffusely through the osseous structures concerning for multiple myeloma, noted pathologic fracture of L4, probable pathologic fractures of L1 and L2 as well. - CT chest with diffuse punctate lytic lesions throughout the osseous structures concerning for multiple myeloma, lungs are clear. - Oncology consulted, appreciate assistance and recommendations. - PT evaluation. - Continue pain control as ordered w/ supportive bowel regimen. - Neuro checks - very low concern for TB as no risk factors ( prison, travel, visitors, or contacts.). Lower concern for Pott's disease currently. -Ongoing low grade temps, x-ray negative, repeat UA negative, repeat CBC in a.m. Symptomatic anemia, acute Tachycardia likely 2/2 anemia H&H on admission 11.2/33.7 -Drop in H&H 8.7-->7.7 s/p 2 units of BRBC's 08/02 -H&H 9.9/27.4, recheck with CBC in a.m. HTN, chronic - Continue Norvasc 10 mg daily, dose recently increased. -Continue monitoring BP and adjust medications accordingly. Abnormal creatinine - June creatinine 1.2 - Creatinine 1.42-->1.36, s/p IVF, creatinine improved 1.22 - BMP in the a.m. DVT prophylaxisLovenox Discussed Condition With: Patient, , and RN
[2018-08-04] MEDS: Acetaminophen 325 MG Tablet PO PRN (20:57)
[2018-08-05 06:25] LABS: Baso % (Auto) 0.4 % (0.0-2.0); Eos # (Auto) 0.1 th/mm3 (0.0-0.4); Eos % (Auto) 1.9 % (0.0-4.0); Hematocrit 29.2 % (39.0-51.0); Hemoglobin 10.3 gm/dL (13.0-17.0); Lymph # (Auto) 2.4 th/mm3 (1.0-4.8); Mean Corpuscular HGB Conc 35.3 % (32.0-36.0); Mean Corpuscular Hemoglobin 31.7 pg (27.0-34.0); Mean Corpuscular Volume 89.6 fL (80.0-100.0); Mean Platelet Volume 8.3 fL (7.0-11.0); Mono # (Auto) 0.8 th/mm3 (0.0-0.9); Mono % (Auto) 13.2 % (0.0-8.0); Neut # (Auto) 2.6 th/mm3 (1.8-7.7); Neut % (Auto) 43.5 % (16.0-70.0); Platelet Count 162 th/mm3 (150-450); Red Blood Count 3.26 mil/mm3 (4.50-5.90); Red Cell Distribution Width 13.4 % (11.6-17.2)
[2018-08-05 06:48] LABS: Anion Gap 6 meq/L (5-15); Blood Urea Nitrogen 12 mg/dL (7-18); Calcium 8.6 mg/dL (8.5-10.1); Carbon Dioxide 31.1 meq/L (21.0-32.0); Chloride 102 meq/L (98-107); Glomerular Filtration Rate Greater Than 89 mL/min (>89); Glucose,Random 93 mg/dL (74-106); Potassium 3.7 meq/L (3.5-5.1); Sodium 139 meq/L (136-145)
[2018-08-05] MEDS: Enoxaparin Inj 40 MG/0.4 ML Syringe SQ SCH (10:15)
[2018-08-05] MEDS: amLODIPine 10 MG Tablet PO SCH (10:16)
[2018-08-05] MEDS: Senna/Docusate Sodium 8.6/50 MG Tablet PO SCH ×2 (10:16→20:56)
[2018-08-05] MEDS: Sodium Chloride 0.9% 2 ML Flush BID IV.FLUSH SCH ×2 (10:16→23:02)
--- NOTE | 2018-08-05 10:55 | P.PNNS ---
Subjective Interval history: reports to be doing ok, denies radicular type pain or paresthesias, ambulating short distance. pathology pending Physical Exam Vital signs: Vital Signs 08/04/18 12:00 08/04/18 13:30 08/04/18 16:51 Temperature 100.9 F H 97.9 F 98.7 F Pulse Rate 95 H 98 H Respiratory Rate 18 17 Blood Pressure 145/83 H 156/87 H Pulse Oximetry 98 95 08/04/18 20:11 08/05/18 00:00 08/05/18 04:00 Temperature 100.2 F H 98.3 F 98.0 F Pulse Rate 92 H 88 Respiratory Rate 18 20 Blood Pressure 141/86 H 146/86 H Pulse Oximetry 98 98 08/05/18 08:00 Temperature 98.2 F Pulse Rate 98 H Respiratory Rate 18 Blood Pressure 139/81 Pulse Oximetry 96 Intake & Output 08/04/18 08/05/18 08/05/18 18:59 06:59 18:59 Intake Total 800 / 800 1440 / 1440 Output Total 200 / 200 Balance 600 / 600 1440 / 1440 Weight 84.4 kg Intake: Oral 800 / 800 1440 / 1440 Output: Urine 200 / 200 Other: # Voids 5 Date of Last Bowel Movement 08/03/18 08/03/18 Narrative: Laying in bed NAD, brushing his teeth LE strength 5/5 - Urinary Catheter Management Indwelling Urethral Catheter Cath placed during this visit: yes, but has since been removed by the nurse Reason for continuing: Hourly intake/output Insertion date: 07/31/18 Insertion time: 13:20 Removal date: 08/02/18 Removal time: 09:00 Assessment and Plan - Plan 47 year old male presented with progressive low back pain s/p L4 laminectomy, open reduction of fracture, L2-L5 posterolateral fusion using autologous bone graft combined with demineralized bone matrix, L2-L5 segmental instrumented fixation using transpedicular screws and rods, microsurgical dissection for Pathological L4 burst fracture on 07/31/18. suspected multiple myeloma, cont PT,encourage mobilization, TLSO when out of bed f/u pathology results, checked still pending today f/u 08/13/18 Dr. Keene office for staple removal f/u oncology clear to dc from [facility] standpoint. f/u in office
--- NOTE | 2018-08-05 14:00 | P.PNONC ---
Subjective Interval history: T-max 100.2 F. Patient resting in bed, talking on his cell phone. He has no complaints at this time. He is asking what time his bone marrow biopsy will be. He reports he walked today with walker and he was able to sit up in chair for 20 minutes. Denies any pain at this time. Objective Vital Signs/Intake & Output: Vital Signs 08/04/18 16:51 08/04/18 20:11 08/05/18 00:00 Temperature 98.7 F 100.2 F H 98.3 F Pulse Rate 98 H 92 H 88 Respiratory Rate 17 18 20 Blood Pressure 156/87 H 141/86 H 146/86 H Pulse Oximetry 95 98 98 08/05/18 04:00 08/05/18 08:00 Temperature 98.0 F 98.2 F Pulse Rate 98 H Respiratory Rate 18 Blood Pressure 139/81 Pulse Oximetry 96 Intake & Output 08/04/18 08/05/18 08/05/18 18:59 06:59 18:59 Intake Total 800 / 800 1440 / 1440 Output Total 200 / 200 Balance 600 / 600 1440 / 1440 Weight 84.4 kg Intake: Oral 800 / 800 1440 / 1440 Output: Urine 200 / 200 Other: # Voids 5 Date of Last Bowel Movement 08/03/18 08/03/18 08/04/18 Result Diagrams: 08/05/18 04:20 08/05/18 04:20 Laboratory Results: Laboratory Results - last 24 hr 08/05/18 08/05/18 04:20 04:20 WBC 6.0 RBC 3.26 L Hgb 10.3 L Hct 29.2 L MCV 89.6 MCH 31.7 MCHC 35.3 RDW 13.4 Plt Count 162 D MPV 8.3 Neut % (Auto) 43.5 Lymph % (Auto) 41.0 [place] % (Auto) 13.2 H Eos % (Auto) 1.9 Baso % (Auto) 0.4 Neut # (Auto) 2.6 Lymph # (Auto) 2.4 [place] # (Auto) 0.8 Eos # (Auto) 0.1 Baso # (Auto) 0.0 WBC Differential . Differential Comment Auto diff final Sodium 139 Potassium 3.7 Chloride 102 Carbon Dioxide 31.1 Anion Gap 6 BUN 12 Creatinine 0.97 Estimated GFR Greater than 89 Random Glucose 93 Calcium 8.6 Medications: Active Medications Generic Name Dose Route Start Last Admin Trade Name Freq PRN Reason Stop Dose Admin Acetaminophen 650 mg 07/29/18 21:44 08/04/18 20:57 Tylenol PO 650 mg Q4H PRN Administration Temp > 100.4/pain 1 - 2/DAY Hydrocodone Bitart/Acetaminophen 2 tab 07/31/18 17:21 08/03/18 22:03 [place] 10/325 PO 1 tab Q4H PRN Administration PAIN SCALE 6 TO 10 Hydrocodone Bitart/Acetaminophen 1 tab 08/03/18 22:51 08/04/18 21:46 [place] 10/325 PO 1 tab Q4H PRN Administration pain 3 - 5 Al Hydroxide/Mg Hydroxide 30 ml 07/31/18 17:21 08/03/18 16:23 Milk Of Magnesia Liq PO 30 ml Q12H PRN Administration Mild Constipation Amlodipine Besylate 10 mg 08/03/18 17:52 08/05/18 10:16 Norvasc PO 10 mg DAILY CHARIS Administration Bisacodyl 10 mg 07/29/18 21:44 08/03/18 22:15 Dulcolax Supp RECTAL 10 mg DAILY PRN Administration SEVERE CONSITIPATION Enoxaparin Sodium 40 mg 07/31/18 09:00 08/05/18 10:15 Lovenox Inj SQ Not Given DAILY CHARIS Sodium Chloride 1,000 mls @ 100 mls/hr 07/31/18 17:30 08/02/18 11:44 Ns Inj IV.CONT 25 mls/hr .Q10H CHARIS Administration Hydromorphone/Sodium Chloride 6 mg in 30 mls @ 0 mls/hr 07/31/18 17:24 04:05 Dilaudid Investment Banking Manager Inj LITIGATION MANAGER 0 mls/hr UNSCH PRN Administration prn pain 0 MG/HR Lactulose 30 ml 07/31/18 17:21 08/03/18 16:23 Lactulose Liq PO 30 ml DAILY PRN Administration SEVERE CONSITIPATION Lisinopril 2.5 mg 07/29/18 22:00 07/30/18 00:06 Prinivil PO 2.5 mg DAILY PRN Administration HYPERTENSION Ondansetron HCl 4 mg 07/29/18 21:44 07/31/18 20:33 Zofran Inj IV.PUSH 4 mg Q6H PRN Administration NAUSEA OR VOMITING Pantoprazole Sodium 40 mg 08/01/18 09:00 08/05/18 10:16 Protonix PO 40 mg DAILY CHARIS Administration Senna/Docusate Sodium 1 tab 07/31/18 21:00 08/05/18 10:16 Nakia-Colace PO 1 tab BID CHARIS Administration Sodium Chloride 2 ml 08/04/18 09:00 08/05/18 10:16 Ns Flush IV.FLUSH 2 ml BID CHARIS Administration Objective Remarks: GENERAL: Well-nourished, well-developed young male patient, in no acute distress. SKIN: Warm and dry. HEAD: Normocephalic. EYES: No scleral icterus. No injection or drainage. NECK: Supple, trachea midline. CARDIOVASCULAR: Regular rate and rhythm without murmurs. RESPIRATORY: Breath sounds equal bilaterally. No accessory muscle use. GASTROINTESTINAL: Abdomen soft, non-tender, nondistended. EXTREMITIES: No cyanosis, or edema. MUSCULOSKELETAL: Adequate muscle tone. NEUROLOGICAL: No obvious focal deficit. Awake, alert, and oriented x3. PSYCHIATRIC: Appropriate mood and affect; insight and judgment normal. Assessment/Plan (1) Multiple myeloma Code(s): C90.00 - Multiple myeloma not having achieved remission Status: Acute - Plan 47-year-old man with no significant past history. He presents with a burst fracture at L4. Is found to have multiple lytic lesions. The serum protein electrophoresis is negative. Free light chain analysis to show the presence of block kappa light chain suspicious for light chain disease. Recommendations: 1. Lytic lesions, suspicious for multiple myeloma. Obtain bone marrow biopsy today. 2. L4 burst fracture, status post surgical fixation, management per neurosurgery. 3. Await bone marrow biopsy results. (1) Multiple myeloma Qualifiers: Multiple myeloma remission status: not in remission Qualified Code(s): C90.00 - Multiple myeloma not having achieved remission
[2018-08-05] MEDS ORDERED: fentaNYL Citrate Inj 250 MCG/5 ML Ampul ONE (15:51)
--- NOTE | 2018-08-05 16:26 | P.RAD ---
Post Procedure Progress Note - Procedure Information Procedure Date: 08/05/18 Supervising Radiologist: Pablo Gastelum MD Estimated blood loss (mL): 5 Anesthesia: Conscious Sedation - Plan of Activity Patient to Unit: ROPU Patient Condition: Good See PACS Report for procedural detail/treatment.
[2018-08-05 16:59] LABS: Iron Stain Bone Marrow Done
--- NOTE | 2018-08-05 18:01 | P.PNIM ---
Subjective Interval history: 47-year-old male with past medical history significant for hypertension who presented to the emergency department on 07/29 with complaints of worsening back pain over the past several weeks. L4 destructive process - evaluated 08/05/18, stable Suspicion for multiple myeloma -NeuroSx consulted, recommendations appreciated. -07/31 s/p L4 laminectomy, open reduction of burst fracture, L2-L5 posterolateral fusion using autologous bone graft combined with demineralized bone matrix, L2-L5 segmental instrumented fixation using transpedicular screws and rods, microsurgical dissection by Dr.Vinas PRATIK salas when OOB -CT abd/pelv with lytic lesions diffusely through the osseous structures concerning for multiple myeloma, noted pathologic fracture of L4, probable pathologic fractures of L1 and L2 as well. -CT chest with diffuse punctate lytic lesions throughout the osseous structures concerning for multiple myeloma, lungs are clear. -Oncology consulted, appreciate assistance and recommendations. Bone marrow biopsy this afternoon. -PT evaluation. -Continue pain control as ordered w/ supportive bowel regimen. -neuro checks -very low concern for TB as no risk factors ( long term, travel, visitors, or contacts.). Lower concern for Pott's disease currently. -Ongoing low grade temps, x-ray negative, repeat UA negative, repeat CBC in a.m. Symptomatic anemia, acute - evaluated 08/05/18, stable H&H on admission 11.2/33.7 -Drop in H&H 8.7-->7.7 s/p 2 units of BRBC's 08/02 -H&H 10.3/29.2 HTN, chronic - evaluated 08/05/18, stable -Continue Norvasc 10 mg daily, dose recently increased. -Continue monitoring BP and adjust medications accordingly. Abnormal creatinine - June creatinine 1.2 - Creatinine 1.42-->1.36 --> 0.97, continuing to improve -continue to monitor DVT prophylaxisLovenox Physical Exam Vital signs: Last Vital Signs Temp 98.5 F 08/05/18 16:26 Pulse 94 H 08/05/18 16:41 Resp 18 08/05/18 16:41 BP 157/94 H 08/05/18 16:41 Pulse Ox 94 L 08/05/18 16:41 Intake & Output 08/03/18 08/04/18 08/05/18 08/06/18 06:59 06:59 06:59 06:59 Intake Total 4090 / 4090 1760 / 1760 2240 / 2240 Output Total 725 / 725 900 / 900 200 / 200 Balance 3365 / 3365 860 / 860 2040 / 2040 Weight 88.8 kg 84.4 kg 84.4 kg Urinary Catheter Management Indwelling Urethral Catheter: Cath placed during this visit: yes, but has since been removed by the nurse Insertion date: 07/31/18 Insertion time: 13:20 Removal date: 08/02/18 Removal time: 09:00 Results Labs CBC & Chem 7: 08/05/18 04:20 08/05/18 04:20 Assessment and Plan (1) Bone marrow edema: Code(s): D75.89 - Other specified diseases of blood and blood-forming organs Status: Acute (2) Back pain at L4-L5 level: Code(s): M54.5 - Low back pain Status: Acute (3) Hypertension: Code(s): I10 - Essential (primary) hypertension Status: Acute (4) Weakness: Code(s): R53.1 - Weakness Status: Acute Progress Note: Quality VTE Deep Vein Thrombosis/Pulmonary Embolism Present on Admission: No _ (1) Hypertension Qualifiers: Hypertension type:
--- NOTE | 2018-08-06 08:13 | IR ---
EXAM DATE: 08/05/2018 4:40 PM EST AGE/SEX: 47 years / Male INDICATIONS: Patient with L4 destructive process in need of bone marrow biopsy for myeloma workup. CLINICAL DATA: This is the patient's initial encounter. Patient reports that signs and symptoms have been present for 2 weeks and indicates a pain score of 8/10. MEDICAL/SURGICAL HISTORY: Hypertension. Heart murmur. . Hernia repair. COMPARISON: No prior exams available for comparison. FLUORO TIME (min): 0.9 SEDATION TIME (min): 15 BIOPSY SITE: Left iliac crest MEDICATION(S): 2.5 mg midazolam (Versed) IV 125 mcg fentanyl (Sublimaze) IV DEVICE(S): 11 gauge Bone marrow biopsy needle . . PROCEDURE: 1. Fluoroscopically guided needle biopsy, Left iliac crest. 2. Bone marrow aspirate, Left iliac crest. 3. Conscious sedation with continuous EKG and Oximetry monitoring. The risks, benefits and alternatives to the procedure were explained and verbal and written consent w as obtained. The site was prepped in sterile fashion. Full sterile technique was used, including cap, mask, sterile gloves and gown and a large sterile sheet. Hand hygiene and 2% chlorhexidine and/or be tadine/alcohol prep was utilized per protocol for cutaneous antisepsis. The skin and subcutaneous tis sues were infiltrated with local anesthetic solution. With fluoroscopic guidance, the Left iliac crest was localized . Bone drill was fluoroscopically guid ed down to the Left iliac crest and a single core obtained and placed in formalin. Bone marrow aspira te was then obtained and placed in the appropriate vials. Conscious sedation was performed with the prescribed dosages and duration as above in the presence of an independent trained radiology nurse to assist in the monitoring of the patient. EKG and oximetry remained stable throughout the procedure. CONCLUSION: 1. Uncomplicated core needle biopsy of the Left iliac crest. 2. Bone marrow aspirate, Left iliac crest. Electronically signed by: Pablo Gastelum MD 08/06/2018 8:12 AM EST
[2018-08-06] MEDS: Enoxaparin Inj 40 MG/0.4 ML Syringe SQ SCH (09:26)
[2018-08-06] MEDS: Senna/Docusate Sodium 8.6/50 MG Tablet PO SCH ×2 (09:26→20:10)
[2018-08-06] MEDS: Sodium Chloride 0.9% 2 ML Flush BID IV.FLUSH SCH (09:26)
[2018-08-06] MEDS: amLODIPine 10 MG Tablet PO SCH (09:26)
--- NOTE | 2018-08-06 09:57 | P.PNONC ---
Subjective Interval history: Pt resting in bed, in no acute distress. S/p bone marrow biopsy yesterday. Discussed path findings from L4 biopsy, awaiting BM biopsy path. Questions answered to pts satisfaction. Objective Vital Signs/Intake & Output: Vital Signs 08/05/18 12:00 08/05/18 16:26 08/05/18 16:41 Temperature 98.3 F 98.5 F Pulse Rate 86 94 H 94 H Respiratory Rate 16 18 18 Blood Pressure 133/75 145/97 H 157/94 H Pulse Oximetry 96 92 L 94 L 08/05/18 20:15 08/06/18 01:10 08/06/18 05:20 Temperature 99.1 F 98.6 F 98.3 F Pulse Rate 95 H 84 83 Respiratory Rate 18 17 17 Blood Pressure 139/83 136/82 129/78 Pulse Oximetry 96 98 97 08/06/18 08:00 Temperature 98.4 F Pulse Rate 75 Respiratory Rate 18 Blood Pressure 125/79 Pulse Oximetry 96 Intake & Output 08/05/18 08/06/18 08/06/18 18:59 06:59 18:59 Intake Total 240 / 240 960 / 960 Balance 240 / 240 960 / 960 Weight 85 kg Intake: Oral 240 / 240 960 / 960 Other: # Voids 0 4 Date of Last Bowel Movement 08/04/18 08/06/18 # Bowel Movements 0 1 Result Diagrams: 08/05/18 04:20 08/05/18 04:20 Imaging Studies: Impressions Bone Biopsy 08/05/18 00:00 CONCLUSION: 1. Uncomplicated core needle biopsy of the Left iliac crest. 2. Bone marrow aspirate, Left iliac crest. Medications: Active Medications Generic Name Dose Route Start Last Admin Trade Name Freq PRN Reason Stop Dose Admin Acetaminophen 650 mg 07/29/18 21:44 08/04/18 20:57 Tylenol PO 650 mg Q4H PRN Administration Temp > 100.4/pain 1 - 2/DAY Hydrocodone Bitart/Acetaminophen 2 tab 07/31/18 17:21 08/03/18 22:[address] 10/325 PO 1 tab Q4H PRN Administration PAIN SCALE 6 TO 10 Hydrocodone Bitart/Acetaminophen 1 tab 08/03/18 22:51 08/05/18 23:[address] 10/325 PO 1 tab Q4H PRN Administration pain 3 - 5 Al Hydroxide/Mg Hydroxide 30 ml 07/31/18 17:21 08/03/18 16:23 Milk Of Magnesia Liq PO 30 ml Q12H PRN Administration Mild Constipation Amlodipine Besylate 10 mg 08/03/18 17:52 08/06/18 09:26 Norvasc PO 10 mg DAILY CHARIS Administration Bisacodyl 10 mg 07/29/18 21:44 08/03/18 22:15 Dulcolax Supp RECTAL 10 mg DAILY PRN Administration SEVERE CONSITIPATION Enoxaparin Sodium 40 mg 07/31/18 09:00 08/06/18 09:26 Lovenox Inj SQ 40 mg DAILY CHARIS Administration Sodium Chloride 1,000 mls @ 100 mls/hr 07/31/18 17:30 08/02/18 11:44 Ns Inj IV.CONT 25 mls/hr .Q10H CHARIS Administration Hydromorphone/Sodium Chloride 6 mg in 30 mls @ 0 mls/hr 07/31/18 17:24 04:05 Dilaudid Ice Rink Attendant Inj MANAGER SPANISH 0 mls/hr UNSCH PRN Administration prn pain 0 MG/HR Lactulose 30 ml 07/31/18 17:21 08/03/18 16:23 Lactulose Liq PO 30 ml DAILY PRN Administration SEVERE CONSITIPATION Lisinopril 2.5 mg 07/29/18 22:00 07/30/18 00:06 Prinivil PO 2.5 mg DAILY PRN Administration HYPERTENSION Ondansetron HCl 4 mg 07/29/18 21:44 07/31/18 20:33 Zofran Inj IV.PUSH 4 mg Q6H PRN Administration NAUSEA OR VOMITING Pantoprazole Sodium 40 mg 08/01/18 09:00 08/06/18 09:26 Protonix PO 40 mg DAILY CHARIS Administration Senna/Docusate Sodium 1 tab 07/31/18 21:00 08/06/18 09:26 [place]-Colace PO 1 tab BID CHARIS Administration Sodium Chloride 2 ml 08/04/18 09:00 08/06/18 09:26 Ns Flush IV.FLUSH 2 ml BID CHARIS Administration Objective Remarks: GENERAL: Well-nourished, well-developed young male patient, in no acute distress. SKIN: Warm and dry. Dressing to mid back dry/intact. HEAD: Normocephalic. EYES: No scleral icterus. No injection or drainage. NECK: Supple, trachea midline. CARDIOVASCULAR: Regular rate and rhythm without murmurs. RESPIRATORY: Breath sounds equal bilaterally. No accessory muscle use. GASTROINTESTINAL: Abdomen soft, non-tender, nondistended. EXTREMITIES: No cyanosis, or edema. MUSCULOSKELETAL: Adequate muscle tone. NEUROLOGICAL: No obvious focal deficit. Awake, alert, and oriented x3. PSYCHIATRIC: Appropriate mood and affect; insight and judgment normal. Assessment/Plan (1) Multiple myeloma Code(s): C90.00 - Multiple myeloma not having achieved remission Status: Acute - Plan 47-year-old man with no significant past history. He presents with a burst fracture at L4. Is found to have multiple lytic lesions. The serum protein electrophoresis is negative. Free light chain analysis to show the presence of block kappa light chain suspicious for light chain disease. Recommendations: 1. Lytic lesions, suspicious for multiple myeloma. Status post bone marrow biopsy yesterday, path pending. L4 biopsy consistent with plasma cell neoplasm. CD138 positive, Shafer light chain positive, lambda light chain negative, cytokeratin AE1/AE3 negative. 2. L4 burst fracture, status post surgical fixation, management per neurosurgery. 3. Await bone marrow biopsy results. - Attending Statement The exam, history, and the medical decision-making described in the above note were completed with the assistance of the mid-level provider. I reviewed and agree with the findings presented. I attest that I had a [id number] encounter with the patient on the same day, and personally performed and documented my assessment and findings in the medical record. Lengthy discussion with significant other and patient diagnosis of light chain multiple myeloma. Discussed the staging BM Bx which he tolerated well. Hgb stable. Renal function improved with support. Defer treatment to allow patient to recover from surgery. Discussed in general term combination chemotherapy and potential autologous bone marrow transplant for diagnosis of MM. Pt is transplant candidate due to young age at time of diagnosis. Pt recalls having been told of protein in urine six months ago. (1) Multiple myeloma Qualifiers: Multiple myeloma remission status: not in remission Qualified Code(s): C90.00 - Multiple myeloma not having achieved remission
--- NOTE | 2018-08-06 18:22 | P.PNIM ---
Subjective Interval history: Follow up L4 destructive process s/p L4 laminectomy, symptomatic anemia, hypertension Patient resting in bed. He states he is planning to get out of bed today. Reminded to wear his brace when getting out of bed. Denies back pain. Bone marrow biopsy pending. Physical Exam Vital signs: Last Vital Signs Temp 98.2 F 08/06/18 15:55 Pulse 93 H 08/06/18 15:55 Resp 18 08/06/18 15:55 BP 129/78 08/06/18 15:55 Pulse Ox 96 08/06/18 15:55 Intake & Output 08/04/18 08/05/18 08/06/18 08/07/18 06:59 06:59 06:59 06:59 Intake Total 1760 / 1760 2240 / 2240 1200 / 1200 Output Total 900 / 900 200 / 200 Balance 860 / 860 2040 / 2040 1200 / 1200 Weight 84.4 kg 84.4 kg 85 kg Narrative: GENERAL: no acute distress, well developed, well nourished SKIN: Warm and dry. HEAD: Normocephalic, atraumatic EYES: No scleral icterus. No injection or drainage. NECK: Supple, trachea midline. No JVD or lymphadenopathy. CARDIOVASCULAR: Regular rate and rhythm without murmurs, gallops, or rubs. RESPIRATORY: Breath sounds equal bilaterally. No accessory muscle use. GASTROINTESTINAL: Abdomen soft, non-tender, nondistended. MUSCULOSKELETAL: No cyanosis, or edema. Urinary Catheter Management Indwelling Urethral Catheter: Cath placed during this visit: yes, but has since been removed by the nurse Insertion date: 07/31/18 Insertion time: 13:20 Removal date: 08/02/18 Removal time: 09:00 Results Labs CBC & Chem 7: 08/05/18 04:20 08/05/18 04:20 Imaging Imaging: Impressions Bone Biopsy 08/05/18 00:00 CONCLUSION: 1. Uncomplicated core needle biopsy of the Left iliac crest. 2. Bone marrow aspirate, Left iliac crest. Assessment and Plan Plan 47-year-old male with past medical history significant for hypertension who presented to the emergency department on 07/29 with complaints of worsening back pain over the past several weeks. L4 burst fracture s/p surgical fixation - evaluated 08/06/18, stable -NeuroSx consulted and following -11/28 s/p L4 laminectomy, open reduction of burst fracture, L2-L5 posterolateral fusion using autologous bone graft combined with demineralized bone matrix, L2-L5 segmental instrumented fixation using transpedicular screws and rods, microsurgical dissection by -DORCAS salas when OOB -Continue pain control as ordered w/ supportive bowel regimen. -neuro checks -very low concern for TB as no risk factors ( longterm, travel, visitors, or contacts.). Lower concern for Pott's disease currently. -PT eval/treat Lytic lesions, suspicious for multiple myeloma -CT abd/pelv with lytic lesions diffusely through the osseous structures concerning for multiple myeloma, noted pathologic fracture of L4, probable pathologic fractures of L1 and L2 as well. -CT chest with diffuse punctate lytic lesions throughout the osseous structures concerning for multiple myeloma, lungs are clear. -s/p bone marrow biopsy 08/05/18, pathology pending -Oncology consulted and following, we appreciate their input Symptomatic anemia, acute - evaluated 08/06/18, stable H&H on admission 11.2/33.7 -Drop in H&H 8.7-->7.7 s/p 2 units of BRBC's 08/02 -H&H 10.3/29.2 HTN, chronic - evaluated 08/06/18, stable -Continue Norvasc 10 mg daily, dose recently increased. -Continue monitoring BP and adjust medications accordingly. Abnormal creatinine -June creatinine 1.2 -Creatinine 1.42-->1.36 --> 0.97, continuing to improve -continue to monitor DVT prophylaxisLovenox Progress Note: Quality VTE Deep Vein Thrombosis/Pulmonary Embolism Present on Admission: No
[2018-08-07] MEDS: amLODIPine 10 MG Tablet PO SCH (08:16)
[2018-08-07] MEDS: Enoxaparin Inj 40 MG/0.4 ML Syringe SQ SCH (08:16)
[2018-08-07] MEDS: Senna/Docusate Sodium 8.6/50 MG Tablet PO SCH ×2 (08:16→21:50)
[2018-08-07] MEDS: Sodium Chloride 0.9% 2 ML Flush BID IV.FLUSH SCH ×3 (08:22→21:50)
--- NOTE | 2018-08-07 13:08 | P.PNIM ---
Subjective Interval history: Follow up L4 burst fracture s/p surgical fixation, symptomatic anemia, hypertension Patient is resting in bed. He reports mild back pain with movement. Continues to wear brace when out of bed. Denies any other pain or discomfort. Awaiting bone marrow biopsy results. Physical Exam Vital signs: Last Vital Signs Temp 97.7 F 08/07/18 12:00 Pulse 84 08/07/18 12:00 Resp 16 08/07/18 12:00 BP 135/82 08/07/18 12:00 Pulse Ox 95 08/07/18 12:00 Intake & Output 08/05/18 08/06/18 08/07/18 08/08/18 06:59 06:59 06:59 06:59 Intake Total 2240 / 2240 1200 / 1200 900 / 900 Output Total 200 / 200 Balance 2040 / 2040 1200 / 1200 900 / 900 Weight 84.4 kg 85 kg 85.2 kg Narrative: GENERAL: no acute distress, well developed, well nourished SKIN: Warm and dry. HEAD: Normocephalic, atraumatic EYES: No scleral icterus. No injection or drainage. NECK: Supple, trachea midline. No JVD or lymphadenopathy. CARDIOVASCULAR: Regular rate and rhythm without murmurs, gallops, or rubs. RESPIRATORY: Breath sounds equal bilaterally. No accessory muscle use. GASTROINTESTINAL: Abdomen soft, non-tender, nondistended. MUSCULOSKELETAL: No cyanosis, or edema. Urinary Catheter Management Indwelling Urethral Catheter: Cath placed during this visit: yes, but has since been removed by the nurse Insertion date: 07/31/18 Insertion time: 13:20 Removal date: 08/02/18 Removal time: 09:00 Results Labs CBC & Chem 7: 08/05/18 04:20 08/05/18 04:20 Assessment and Plan (1) Multiple myeloma: Code(s): C90.00 - Multiple myeloma not having achieved remission Status: Acute Plan 47-year-old male with past medical history significant for hypertension who presented to the emergency department on 07/29 with complaints of worsening back pain over the past several weeks. L4 burst fracture s/p surgical fixation - evaluated 08/07/18, stable -NeuroSx consulted and signed off -07/31 s/p L4 laminectomy, open reduction of burst fracture, L2-L5 posterolateral fusion using autologous bone graft combined with demineralized bone matrix, L2-L5 segmental instrumented fixation using transpedicular screws and rods, microsurgical dissection by -MARILYNO brace when OOB -Continue pain control as ordered w/ supportive bowel regimen. -PT eval/treat -f/u with Dr Keene on 08/13/18 for staple removal Lytic lesions, suspicious for multiple myeloma - evaluated 08/07/18 -CT abd/pelv with lytic lesions diffusely through the osseous structures concerning for multiple myeloma, noted pathologic fracture of L4, probable pathologic fractures of L1 and L2 as well. -CT chest with diffuse punctate lytic lesions throughout the osseous structures concerning for multiple myeloma, lungs are clear. -L4 biopsy consistent with plasma cell neoplasm -s/p bone marrow biopsy 08/05/18, pathology showing plasma cell myeloma -Oncology consulted and following, we appreciate their input Symptomatic anemia, acute - evaluated 08/06/18, stable -continue to monitor HTN, chronic - evaluated 08/07/18, stable -Continue Norvasc 10 mg daily, dose recently increased. -Continue monitoring BP and adjust medications accordingly. Abnormal creatinine - evaluated 08/07/18, improved -June creatinine 1.2 -Creatinine 1.42-->1.36 --> 0.97 -continue to monitor DVT prophylaxisLovenox Progress Note: Quality VTE Deep Vein Thrombosis/Pulmonary Embolism Present on Admission: No _ (1) Multiple myeloma Qualifiers: Multiple myeloma remission status: not in remission Qualified Code(s): C90.00 - Multiple myeloma not having achieved remission
[2018-08-08] MEDS: Senna/Docusate Sodium 8.6/50 MG Tablet PO SCH (08:13)
[2018-08-08] MEDS: amLODIPine 10 MG Tablet PO SCH (08:13)
[2018-08-08] MEDS: Enoxaparin Inj 40 MG/0.4 ML Syringe SQ SCH (08:13)
[2018-08-08] MEDS: Sodium Chloride 0.9% 2 ML Flush BID IV.FLUSH SCH (09:18)
[2018-08-08 11:57] VITALS: O2SAT 97
--- NOTE | 2018-08-08 14:22 | P.PNONC ---
Subjective Interval history: Afebrile. Patient lying in bed, no acute distress. He has no complaints at this time. He is excited to go home. Discussed follow-up in outpatient oncology clinic. Objective Vital Signs/Intake & Output: Vital Signs 08/07/18 16:00 08/07/18 20:00 08/08/18 00:00 Temperature 97.9 F 98.3 F 98.3 F Pulse Rate 83 94 H 88 Respiratory Rate 18 18 18 Blood Pressure 151/91 H 135/80 138/82 Pulse Oximetry 96 97 96 08/08/18 04:00 08/08/18 08:00 08/08/18 11:56 Temperature 97.3 F L 98.2 F 98.5 F Pulse Rate 84 83 87 Respiratory Rate 18 17 18 Blood Pressure 126/79 144/95 H 138/79 Pulse Oximetry 97 98 97 Intake & Output 08/07/18 08/08/18 08/08/18 18:59 06:59 18:59 Intake Total 1100 / 1100 860 / 860 Output Total 850 / 850 650 / 650 Balance 250 / 250 210 / 210 Weight 84.5 kg Intake: Oral 1100 / 1100 860 / 860 Output: Urine 850 / 850 650 / 650 Other: # Voids 2 Date of Last Bowel Movement 08/07/18 08/07/18 # Bowel Movements 1 Result Diagrams: 08/05/18 04:20 08/05/18 04:20 Medications: Active Medications Generic Name Dose Route Start Last Admin Trade Name Freq PRN Reason Stop Dose Admin Acetaminophen 650 mg 07/29/18 21:44 08/04/18 20:57 Tylenol PO 650 mg Q4H PRN Administration Temp > 100.4/pain 1 - 2/DAY Hydrocodone Bitart/Acetaminophen 2 tab 07/31/18 17:21 08/03/18 22:03 Williams 10/325 PO 1 tab Q4H PRN Administration PAIN SCALE 6 TO 10 Hydrocodone Bitart/Acetaminophen 1 tab 08/03/18 22:51 08/08/18 11:19 Williams 10/325 PO 1 tab Q4H PRN Administration pain 3 - 5 Al Hydroxide/Mg Hydroxide 30 ml 07/31/18 17:21 08/03/18 16:23 Milk Of Magnesia Liq PO 30 ml Q12H PRN Administration Mild Constipation Amlodipine Besylate 10 mg 08/03/18 17:52 08/08/18 08:13 Norvasc PO 10 mg DAILY CHARIS Administration Bisacodyl 10 mg 07/29/18 21:44 08/03/18 22:15 Dulcolax Supp RECTAL 10 mg DAILY PRN Administration SEVERE CONSITIPATION Enoxaparin Sodium 40 mg 07/31/18 09:00 08/08/18 08:13 Lovenox Inj SQ 40 mg DAILY CHARIS Administration Sodium Chloride 1,000 mls @ 100 mls/hr 07/31/18 17:30 08/02/18 11:44 Ns Inj IV.CONT 25 mls/hr .Q10H CHARIS Administration Hydromorphone/Sodium Chloride 6 mg in 30 mls @ 0 mls/hr 07/31/18 17:24 04:05 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 Engineer 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 0 mls/hr UNSCH PRN Administration prn pain 0 MG/HR Lactulose 30 ml 07/31/18 17:21 08/03/18 16:23 Lactulose Liq PO 30 ml DAILY PRN Administration SEVERE CONSITIPATION Lisinopril 2.5 mg 07/29/18 22:00 07/30/18 00:06 Prinivil PO 2.5 mg DAILY PRN Administration HYPERTENSION Ondansetron HCl 4 mg 07/29/18 21:44 07/31/18 20:33 Zofran Inj IV.PUSH 4 mg Q6H PRN Administration NAUSEA OR VOMITING Pantoprazole Sodium 40 mg 08/01/18 09:00 08/08/18 08:13 Protonix PO 40 mg DAILY CHARIS Administration Senna/Docusate Sodium 1 tab 07/31/18 21:00 08/08/18 08:13 Nakia-Colace PO 1 tab BID CHARIS Administration Sodium Chloride 2 ml 08/04/18 09:00 08/08/18 09:18 Ns Flush IV.FLUSH 2 ml BID CHARIS Administration Objective Remarks: GENERAL: Well-nourished, well-developed male patient, in nad. SKIN: Warm and dry. HEAD: Normocephalic. EYES: No scleral icterus. No injection or drainage. NECK: Supple, trachea midline. CARDIOVASCULAR: Regular rate and rhythm without murmurs. RESPIRATORY: Anterior breath sounds clear, equal bilaterally. Nonlabored at rest GASTROINTESTINAL: Abdomen soft, non-tender, nondistended. EXTREMITIES: No cyanosis, or edema. MUSCULOSKELETAL: Adequate muscle tone. NEUROLOGICAL: No obvious focal deficit. Awake, alert, and oriented x3. PSYCHIATRIC: Appropriate mood and affect; insight and judgment normal. Assessment/Plan (1) Multiple myeloma Code(s): C90.00 - Multiple myeloma not having achieved remission Status: Acute - Plan 47-year-old man with no significant past history. He presents with a burst fracture at L4. Is found to have multiple lytic lesions. The serum protein electrophoresis is negative. Free light chain analysis to show the presence of block kappa light chain suspicious for light chain disease. Recommendations: 1. Light chain multiple myeloma. L4 biopsy consistent with plasma cell neoplasm. CD138 positive, [place] light chain positive, lambda light chain negative, cytokeratin AE1/AE3 negative. Bone marrow biopsy pending. 2. L4 burst fracture, status post surgical fixation, management per neurosurgery. 3. Patient cleared for discharge from an oncology standpoint. He will follow- up in the outpatient clinic. Patient information sent to new patient referrals. - Attending Statement The exam, history, and the medical decision-making described in the above note were completed with the assistance of the mid-level provider. I reviewed and agree with the findings presented. I attest that I had a [id number] encounter with the patient on the same day, and personally performed and documented my assessment and findings in the medical record. Patient seen and examined. Pain is under control. Pleased that he is able to sit up. He is concerned about getting a commode for when he is discharged home. We discussed his bone marrow biopsy results. A copy was provided for him. Cytogenetics are still pending. FISH analysis have been added. Patient is a very good candidate for autologous stem cell transplant as part of his treatment for multiple myeloma. 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 In light of his disease, recent spinal surgery, he is unable to resume work. He has disability from complications of his advanced multiple myeloma. Patient is provided information to new patient referral. Advised to call new patient referral coordinate a follow-up appointment regional oncology upon discharge. We will see him as soon as possible. Defer to neurosurgery for patient discharge. (1) Multiple myeloma Qualifiers: Multiple myeloma remission status: not in remission Qualified Code(s): C90.00 - Multiple myeloma not having achieved remission
[2018-08-08 16:06] VITALS: BP 127/80; PULSE 85; RESP 16; TEMP 97.8
--- NOTE | 2018-08-08 19:24 | P.DS ---
DS: Providers Date of admission: 07/29/18 21:28 Primary care physician: No Primary Care Physician Consults: 07/29/18 21:41 Consult to Oncology Routine Consulting Provider: Endy Aldridge Reason for Consultation: L4 destructive process Notified:: Service Spoke with:: micky Date Notified:: 07/29/18 Time Notified:: 22:56 Ordering Provider: SHAUN 07/29/18 21:42 Consult to Neurosurgery Routine Consulting Provider: Baldemar Keene Reason for Consultation: L4 destructive process Notified:: Service Spoke with:: micky Date Notified:: 07/29/18 Time Notified:: 22:55 Ordering Provider: SHAUN 07/31/18 17:27 Consult to Oncology Routine Consulting Provider: Ly Grijalva Reason for Consultation: myeloma Notified:: Service Spoke with:: CHARI Date Notified:: 07/31/18 Time Notified:: 17:37 Ordering Provider: CLAUDIA Anticipated date of discharge: 08/08/18 Brief History from admission: Patient is a 47 year old male with past medical history of HTN presenting to ED for complaints of lower back pain progressively worsening the last few weeks. Patient reports that on May 30 of this year he initially injured his back at work and was unable to work for a brief period. 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 Patient did not seek medical attention at the time and instead used ibuprofen and ice/ warm packs with mild improvement. Patient reports continued lower back pain on/ off but it reached its apex when he tried to cut the lawn and felt severe 10/10 sharp, non radiating lower back pain which limited his activity so he came to the ED. No other reported trauma. Patient denied drug use. Family history of liver cancer only in mother. No complaints of numbness/tingling in groin region. No urinary retention but he did notice some incontinence occasionally which is new. ROS otherwise negative including CP, SOB, palpitations, rash development. Of note, patient with ED visit 06/20 for midsternal chest pain which was ruled out for ACS w/ discharge and PMD follow up. In ED patient received imaging showing lumbar destructive process for which neuroSx consulted and recommended transfer to [facility] and oncology evaluation. Currently patient labwork for myeloma workup in PROCESS. Patient update on day of discharge: Patient was educated on continued outpatient follow up with Oncology to go over final bone marrow biopsy results and treatment options. Case management assisting with obtaining Medicaid. RT stated patients girlfriend was educated on how to assist patient with putting on brace and taking it off. Patient reports improvement in back pain. He was advised to follow up with General Surgery Dr Keene post discharge. Patient verbalized understanding of all provided instructions. DS: Diagnosis Discharge Diagnosis (1) Multiple myeloma: Status: Acute Diagnosis: Principal (2) Fracture of lumbar spine: Status: Acute Diagnosis: Principal (3) Hypertension: Status: Acute Diagnosis: Principal (4) Bone marrow edema: Status: Acute DS: Summary Patient was admitted under the care of the hospitalist service. He was seen in consultation by Neurosurgeon Dr Keene. MRI of the lumbar spine results were reviewed showing abnormal L4 vertebral body with subtle marrow edema and L2 and L4 without obvious enhancement. This had the appearance of a long-standing process. Marrow replacing process such as myeloma should be excluded clinically. TLSO brace was ordered. Dr Keene recommended ORIF of L4 pathological fracture with posterolateral fixation using transpedicular screws and rods. Patient underwent surgery 07/31/18 which included L4 laminectomy, open reduction of burst fracture, L2-L5 posterolateral fusion using autologous bone graft combined with demineralized bone matrix, L2-L5 segmental instrumented fixation using transpedicular screws and rods, and microsurgical dissection. A biopsy was sent and final diagnosis read as plasma cell neoplasm. Hematology/Oncology was consulted and based on pathology findings multiple myeloma could not be excluded. A bone marrow biopsy was recommended and this was completed 08/05/18. The final pathology showed plasma cell myeloma. Case management was consulted for assistance with patients Medicaid application. Patient was advised to follow up with Dr Keene on 08/13/18 in his office for staple removal. He was educated on wearing his TLSO when out of bed. He was deemed stable for discharge from Neurosurgery as well as Oncology standpoint. Follow up instructions were provided. Time Spent with Patient Total time spent providing and/or coordinating discharge services: Greater than 30 minutes Status at Discharge Functional status at discharge: independent ambulation Overall status at discharge: patient is progressing back to baseline Quality: VTE Deep Vein Thrombosis/Pulmonary Embolism Present on Admission: No Exam Narrative Exam Narrative: GENERAL: no acute distress, well developed, well nourished SKIN: warm and dry HEAD: atraumatic, normocephalic EYES: Pupils equal and round. No scleral icterus. No injection or drainage. ENT: No nasal bleeding or discharge. Mucous membranes pink and moist. NECK: Trachea midline. No JVD. CARDIOVASCULAR: Regular rate and rhythm. RESPIRATORY: No accessory muscle use. Clear to auscultation. Breath sounds equal bilaterally. GASTROINTESTINAL: Abdomen soft, non-tender, nondistended. Hepatic and splenic margins not palpable. MUSCULOSKELETAL: Extremities without clubbing, cyanosis, or edema. No obvious deformities. NEUROLOGICAL: Awake and alert. No obvious cranial nerve deficits. Motor grossly within normal limits. Five out of 5 muscle strength in the arms and legs. Normal speech. PSYCHIATRIC: Appropriate mood and affect; insight and judgment normal. Results Procedures completed during hospitalization: Bone marrow biopsy Labs on day of discharge: Labs from last 24 hours 08/05/18 16:14 Misc Test Result Pending Impressions ITS Impressions Lumbar Spine MRI 07/29/18 17:19 CONCLUSION: 1. Abnormal L4 vertebral body with subtle marrow edema and L2 and L4 without obvious enhancement. This has the appearance of a long-standing process. 2. Marrow appears osteoporotic with minimal endplate depression of L1 and L2.. 3. Marrow replacing process such as a myeloma should be excluded clinically. 4. Bone scan may help in determining whether or not this is an acute or chronic process. 5. If a small inflammatory process such as tuberculosis is a consideration this could be biopsied precariously as well. Abdomen/Pelvis CT 07/30/18 00:00 CONCLUSION: 1. There are lytic lesions diffusely throughout the osseous structures concerning for multiple myeloma. 2. Pathologic fracture of L4. 3. Probable pathologic fractures of L1 and L2 as well. Chest CT 07/30/18 00:00 CONCLUSION: 1. Diffuse, punctate lytic lesions throughout the osseous structures this is concerning for multiple myeloma. 2. The lungs are clear. Lumbar Spine X-Ray 07/31/18 00:00 CONCLUSION: 1. Posterior fusion hardware is noted from L2 through L5 and appears to be in good position. 2. Significant compression deformity involving L4 is stable. Mild compression deformity involving L2 is also stable. Chest X-Ray 08/03/18 00:00 CONCLUSION: No acute intrathoracic disease. Stable examination. Bone Biopsy 08/05/18 00:00 CONCLUSION: 1. Uncomplicated core needle biopsy of the Left iliac crest. 2. Bone marrow aspirate, Left iliac crest. Discharge Plan Discharge Disposition Patient Disposition: Discharge Home Discharge Condition Condition: Stable Discharge Order Discharge Orders: Discharge Order (Routine); Ordered 08/08/18 Ordered By: Donovan Hurd Neurosurgery Clear for Discharge (Routine); Ordered 08/06/18 Ordered By: Elidia Currie Oncology Clear for Discharge (Routine); Ordered 08/08/18 Ordered By: Danisha Willett Discharge Details Anticipated Discharge Date: 08/08/18 Physicians Team ED Provider: Dov Paul ED Midlevel Provider: Chari Mcclellan Primary Care Provider: Primary Care Lanette Lockhart Attending Provider: Bonnie Tolentino Other Providers: Endy Aldridge ; Baldemar Keene ; Ly Grijalva Rxs /Orders / Referrals /Forms Prescriptions: New hydrocodone-acetaminophen 10-325 mg Tablet 1 tab PO Q6HR PRN (Reason: pain 3 - 5) Qty: 12 RF: 0 amlodipine [Norvasc] 10 mg Tablet 10 mg PO DAILY Qty: 30 RF: 0 Continue lisinopril 2.5 mg Tablet 2.5 mg PO DAILY PRN (Reason: Hypertension) RF: 0 Ambulatory Orders / Order Sets / DME: Walker With Front Wheels (1 each) (Routine) Location: Determined by Patient Ordered By: Kaylie York Referrals: Baldemar Keene MD [NEUROSURGERY] - See Instructions (Please follow up 08/13/18 for staple removal) Primary Care Lanette Lockhart [Primary Care Provider] - See Instructions Ly Grijalva MD [Physician] - See Instructions (Please follow up in 1 week) Discharge Instructions Patient Printed Instructions: Hydrocodone/Acetaminophen (By mouth), Multiple Myeloma (GEN), Laminectomy (DC) Additional Instructions: follow up Dr. Keene office 08/13/18 for staple removal Please follow up with Dr Grijalva office at the Oncology Clinic Post Discharge Care Plan Care Plan Goals: Your Health Problems: Goals to Promote Your Health: * To prevent worsening of your condition * To maintain your health at the optimal level Directions to Meet Your Goals: * Take your medications as prescribed * Follow your dietary instruction * Follow activity as directed * Keep your appointments as scheduled * Take your immunizations and boosters as scheduled * If your symptoms worsen call your PCP * If no PCP go to Urgent Care or Emergency Room Smoking is dangerous to your health. Avoid second hand smoke. You may reach the 24-hour crisis hotline for domestic abuse at . Status ED Status: Left Department Discharge Information Discharge Date/Time: 08/08/18 16:47
== END 2018-08-08 16:47 | disposition home or self-care (01) ==
LOC: PHEFT 15:27 → PHEDA 21:28 → PHEDH 07-30 03:18 → N06 07-30 12:33 → N03 07-31 17:35 → N06 08-01 14:50
PROVIDERS: ADMIT Internal Medicine; ATTEND Internal Medicine
DX: R00.0 Tachycardia, unspecified; M84.48XA Pathological fracture, other site, initial encounter for fracture; Z80.0 Family history of malignant neoplasm of digestive organs; N18.9 Chronic kidney disease, unspecified; R01.1 Cardiac murmur, unspecified; Z23 Encounter for immunization; Z79.899 Other long term (current) drug therapy; I12.9 Hypertensive chronic kidney disease with stage 1 through stage 4 chronic kidney disease, or unspecified chronic kidney disease; R32 Unspecified urinary incontinence; M81.0 Age-related osteoporosis without current pathological fracture; C90.00 Multiple myeloma not having achieved remission; D64.9 Anemia, unspecified; Z87.891 Personal history of nicotine dependence; D63.1 Anemia in chronic kidney disease; M16.12 Unilateral primary osteoarthritis, left hip; R60.9 Edema, unspecified; Z82.49 Family history of ischemic heart disease and other diseases of the circulatory system; R79.89 Other specified abnormal findings of blood chemistry; R53.1 Weakness